=== PATIENT | male | born 1960 | race Caucasian/White ===

== ENCOUNTER 2017-11-02 03:00 | Inpatient (IN) ==
[2017-11-02] MEDS ORDERED: *HR* Dextrose 50 % in Water (Syg) 50 ML SYRINGE IVP PRN (03:40)
[2017-11-02] MEDS ORDERED: Dextrose Gel 15 GM/37.5 ML TUBE PO PRN ×2 (03:40)
[2017-11-02] MEDS ORDERED: D5% in Water 1,000 ML IVC PRN (03:40)
[2017-11-02] MEDS ORDERED: Acetaminophen 325 MG TABLET PO PRN (03:47)
[2017-11-02] MEDS ORDERED: Naloxone 0.4 MG/ML INJ IVP PRN (03:47)
[2017-11-02] MEDS ORDERED: Ondansetron ODT 4 MG TAB.RAPDIS SL PRN (03:47)
--- NOTE | 2017-11-02 03:47 | Internal Med History&Physical ---
<Charity Worthy - Last Filed: 11/02/17 04:06> Date of Encounter: 11/02/17 Time of Encounter: 04:06 Assessment and Plan (1) Small bowel obstruction, partial Current visit: Yes Status: Acute Patient is comfortable and in no acute distress. Patient is afebrile but is tachycardic at 120bpm. Documents from transferred hospital showed elevated WBC at 15.8. Lipase was unremarkable at 204. UA does not indicate any infection. CT of abdomen and pelvis with contrast reads low grade small bowel obstruction, consistent chronic pancreatitis, and hepatic stenosis per report. 1. Will make patient NPO now. 2. Will give IV fluids. 3. Pain control with dilaudid. 4. Will also order EKG to further evaluate his shortness of breath associated with the abdominal pain 5. Will hold Brilinta until the morning. (2) Diabetes Current visit: Yes Status: Acute Patient has DM Type 2 and is insulin dependent. Will hold diabetes home medications. Will have patient on insulin sliding scale. Continue to monitor the patient closely. Qualifiers: Qualified Code(s): E11.9 - Type 2 diabetes mellitus without complications (3) Hypertension Current visit: Yes Status: Acute Hypertension is stable and controlled. Will continue home medications. Continue to monitor the patient closely. Qualifiers: Qualified Code(s): I10 - Essential (primary) hypertension (4) Hyperlipidemia Current visit: Yes Status: Acute Will continue home medications. Qualifiers: Qualified Code(s): E78.5 - Hyperlipidemia, unspecified (5) Colon cancer Current visit: Yes Status: Acute Colon cancer s/p right hemicolectomy. Dr. Zayas is his oncologist. Per patient , he has another consultation appointment scheduled this coming Friday. Qualifiers: Qualified Code(s): C18.9 - Malignant neoplasm of colon, unspecified Internal Medicine - H&P: HPI Chief complaint: Abdominal pain Admitted From: Hospital to Hospital Transfer History of present illness: Mr. Jansen is a 57 year old male with a past medical history of small bowel obstruction, CHF, CAD s/p stent in 2016, Diabetes mellitus type 2 insulin dependent, hyperlipidemia, hypertension, and colon cancer s/p right hemicolectomy was transferred here for small bowel obstruction. The patient stated that he began having abdominal pain around noon on 11/01/16 while just walking. He describes the abdominal pain as an intermittent pain in his epigastrium that radiates down his surgical scar and to the bilateral lower quadrants. He states that the pain is stabbing and crampy and feels like his previous SBO. He admits that his last SBO was one month ago where he was hospitalized at [facility] for a few days but no surgical intervention was done. Prior to that, he believed he had an SBO in February where there was surgical intervention. The patient also admits nausea and vomiting and some shortness of breath when the abdominal pain comes on. The patient admits he had a bowel movement prior to being transferred to this hospital. He denies any headache, vision changes, chest pain, diarrhea, blood in his stool, dysuria, hematuria, numbness and tingling, and any weaknesses. Past Med Surg Social Fam HX - Past Medical History Medical history: coronary artery disease, diabetes, hyperlipidemia, hypertension Psychiatric history: anxiety, depression, panic disorder, PTSD, prior suicide attempt, schizophrenia - Past Surgical History Surgical History: angioplasty/stent - Social History Smoking Status: Former smoker Smokeless Tobacco Status: No Alcohol use: none Drug use: none - Family History Sister Living Status: Still Living Hx Family Cardiac Disorders: Yes Hx Family Respiratory Disorders: Yes Hx Family Cancer: No Hx Family GI Disorders: No Hx Family Endocrine Disorder: Yes Hx Family Neuromuscular Disorders: Yes Hx Family Neurologic Disorders: No Hx Family HEENT Disorders: No Hx Family Autoimmune Disorders: No Internal Medicine - H&P: Meds Aspirin Enteric Coated [Aspirin EC] 81 mg PO DAILY 05/29/16 [History] Ergocalciferol (VITAMIN D2) [Vitamin D2 (50,000 UNIT)] 50,000 unit PO SUWE 05/29 [History] Insulin Glargine,Hum.rec.anlog [Lantus Solostar] 80 unit SQ HS 05/29/16 [History ] Isosorbide MONOnitrate (24 HR) [Imdur] 60 mg PO DAILY 05/29/16 [History] Metformin HCl [Glucophage] 1,000 mg PO BID 05/29/16 [History] Metoprolol [Lopressor] 25 mg PO BID 05/29/16 [History] Nitroglycerin 0.4 mg SL Q5MIN PRN 05/29/16 [History] Rosuvastatin [Crestor] 40 mg PO DAILY 05/29/16 [History] Ticagrelor [Brilinta] 90 mg PO BID #60 tablet 05/30/16 [Rx] Capecitabine [Xeloda] 1,000 mg PO BID #56 tablet 10/24/17 [Rx] Diphenoxylate/Atropine [Lomotil 2.5 mg/0.025 mg] 1 each PO QID PRN #30 tablet [Rx] Loperamide [Imodium] 2 mg PO Q4HR PRN #30 capsule 10/24/17 [Rx] Ondansetron [Zofran] 8 mg PO Q8HR #90 tablet 10/24/17 [Rx] Prochlorperazine Maleate [Compazine] 10 mg PO Q8HR PRN #90 tablet 10/24/17 [Rx] 3 Allergy/AdvReac Type Severity Reaction Status Date / Time bee venom protein (honey bee) Allergy Difficulty Verified 10/24/17 15:04 Breathing Penicillins [PCN] AdvReac Hives Verified 10/24/17 15:03 All Systems PM: A 10-system review of systems was performed and is negative for pertinent findings except as documented above in the HPI. - Constitutional Vitals: Temp Pulse Resp BP Pulse Ox 97.7 F 133 16 134/90 94 11/02/17 02:22 11/02/17 02:22 11/02/17 02:22 11/02/17 02:22 11/02/17 02:22 General appearance: Present: cooperative, A&O X 3, pleasant, no acute distress Exam: Patient appears comfortable and in no acute distress. - Head Head exam: Present: atraumatic, normocephalic - Eye Eye exam: Present: PERRL, conjuntiva pink, sclera anicteric Pupils: Present: PERRL - Neck Neck exam general surgery: Present: supple, trachea midline. Absent: lymphadenopathy - Respiratory Respiratory exam: Present: CTAB. Absent: accessory muscle use, rales, rhonchi, wheezes - Cardiovascular Cardiovascular exam: Present: RRR, +S1, +S2, tachycardia. Absent: diastolic murmur, gallop, rubs, systolic murmur - GI/Abdominal GI/Abdominal exam: Present: normal bowel sounds, soft, tenderness (tenderness to palpation in the epigastrium and umbilicus region. ), no peritoneal signs. Absent: distended Additional comments: Well healed linear surgical incision in the middle of his abdomen. Abdomen is soft and nondistended. - Extremities Exam Extremities exam: Present: warm, radial pulses palpable and symmetrical. Absent : calf tenderness, cyanotic, pedal edema - Neurological Exam Neurological exam: Present: CN II-XII intact, oriented X3, no focal deficits. Absent: pronater drift, facial droop, speech deficit - Skin Skin exam: Present: dry, intact <Debra Sandoval - Last Filed: 11/02/17 06:09> Date of Encounter: 11/02/17 Internal Medicine - H&P: HPI History of present illness: Mr. Jansen is a 57 year old male All Systems PM: A 10-system review of systems was performed and is negative for pertinent findings except as documented above in the HPI. - Constitutional Vitals: Temp Pulse Resp BP Pulse Ox 97.9 F 123 16 140/59 95 11/02/17 04:34 11/02/17 04:34 11/02/17 04:34 11/02/17 04:34 11/02/17 04:34 Internal Med - H&P Results - Labs CBC & Chem 7: 11/02/17 05:20 Labs: BMP 11/02/17 05:20 Sodium 139 Potassium 4.6 Chloride 110 H Carbon Dioxide 16 L BUN 23 H Creatinine 0.77 Glucose 176 H Calcium 9.3 Liver Function 11/02/17 Range/Units 05:20 Total Bilirubin 0.6 (0.3-1.0) mg/dL AST 17 (13-39) Units/L ALT 16 (7-52) Units/L Alkaline Phosphatase 47 (34-104) Units/L Albumin 4.4 (3.5-5.7) g/dL - Attending Attestation I have seen and examined pt independently, I have discussed with Resident Physician Dr Worthy regarding the management plan. Agree with the documentation.
[2017-11-02] MEDS ORDERED: Nitroglycerin 0.4 MG TAB.SUBL SL PRN (03:59)
[2017-11-02] MEDS ORDERED: Diphenoxylate/Atropine 1 TAB TABLET PO PRN (03:59)
[2017-11-02] MEDS ORDERED: Ondansetron ODT 4 MG TAB.RAPDIS PO PRN (05:43)
[2017-11-02] MEDS: *HR* Heparin 5,000 UNIT/ML VIAL SQ SCH ×2 (05:49→18:43)
[2017-11-02] MEDS: 0.9 % Sodium Chloride 1,000 ML IVC SCH ×2 (05:49→14:55)
[2017-11-02] MEDS: *HR* HYDROmorphone (PF) 1 MG/ML SYRINGE IVP PRN (05:52)
[2017-11-02] MEDS: Insulin LISPRO 300 UNITS/3 ML VIAL SQ SCH ×3 (05:52→20:51)
[2017-11-02 05:59] LABS: Alanine Aminotransferase 16 Units/L (7-52); Albumin 4.4 g/dL (3.5-5.7); Albumin/Globulin Ratio 1.4 (1.1-2.2); Alkaline Phosphatase 47 Units/L (34-104); Aspartate Amino Transferase 17 Units/L (13-39); BUN/Creatinine Ratio 30 (6-26); Bilirubin,Total 0.6 mg/dL (0.3-1.0); Blood Urea Nitrogen 23 mg/dL (6-20); Calcium 9.3 mg/dL (8.6-10.3); Carbon Dioxide 16 mEq/L (23-29); Chloride 110 mEq/L (98-107); Chol/HDL Ratio 3.9 (0-4.9); Cholesterol 140 mg/dL (< 200); Globulin 3.1 g/dL (2.4-3.5); Glucose 176 mg/dL (70-105); HDL Cholesterol 36 mg/dL (40-59); LDL Cholesterol,Calculated 73 mg/dL (0-99); Magnesium 1.4 mg/dL (1.6-2.6); Osmolality,Calculated 296 (280-300); Potassium 4.6 mEq/L (3.5-5.1); Sodium 139 mEq/L (136-145); Total Protein 7.5 g/dL (6.4-8.9); Triglycerides 157 mg/dL (< 150); eGFR For African Americans > 60 (> 60); eGFR For Non-African Americans > 60 (> 60)
[2017-11-02 06:05] LABS: Basophils % 0.3 %; Hematocrit 48.1 % (37.5-50.1); Hemoglobin 14.7 g/dL (12.9-16.9); Immature Granulocytes % 0.5 % (0-4); Lymphocytes % 14.9 %; Mean Corpuscular HGB Conc 30.6 g/dL (31.6-35.5); Mean Corpuscular Hemoglobin 24.7 pg (28.0-33.3); Mean Platelet Volume 11.5 fL (9.4-12.4); Monocytes # 0.7 K/mcL (0.0-1.3); Monocytes % 11.2 %; Neutrophils # 4.9 K/mcL (1.6-8.9); Platelet Count 219 K/mcL (140-400); Red Blood Count 5.94 M/mcL (4.19-5.50); Red Cell Distribution Width 16.2 % (11.5-14.5); Segmented Neutrophils % 73.1 %
[2017-11-02] MEDS ORDERED: *HR* Metoprolol 5 MG/5 ML VIAL IVP PRN (06:35)
[2017-11-02] MEDS ORDERED: *HR* Metoprolol 5 MG/5 ML VIAL IVP SCH (06:45)
[2017-11-02] MEDS ORDERED: Metoprolol XL (24 HR) Succ 25 MG TAB.ER.24H PO ONE (08:32)
[2017-11-02] MEDS ORDERED: Isosorbide MONOnitrate (24 HR) 60 MG TAB.ER.24H PO SCH (09:00)
[2017-11-02] MEDS ORDERED: Aspirin Enteric Coated 81 MG Tablet PO SCH (09:00)
--- NOTE | 2017-11-02 14:45 | Event Note ---
Date of Encounter: 11/02/17 Time of Encounter: 14:44 Patient seen and examined this AM. 57 year old male with history of colon cancer s/p right hemicolectomy presented for abdominal pain. He was transferred here after CT showed low grade small bowel obstruction. Patient reports he had a SBO one month ago and hospitalized at [facility], without any surgical intervention. He states that 8 months ago he had a SBO and surgerical intervention was done, unsure exactly what was done. Patient states he has an Oncology appointment tomorrow at 8 am to evaluate if he is a good candidate for chemotherapy. Upon examining patient, he is in no acute distress, currently denies abdominal pain, n/v. Has good appetite, would like to eat. VS reviewed. Patient tachcardic in AM 120-130s bpm. Normotensive, afebrile Physical exam: Abdomen is soft, mild TTP in epigastric region, normoactive bowel sounds, no peritoneal signs. A/P: - Partial SBO: low grade, patient currently pain free, and only mild TTP with palpation on exam. Patient mentioned that he did just now have a bowel movement. No NG tube has been necessary. Since patient having 2 recurrances within a year, will consult surgery for any recommendations for patient. Will keep patient NPO and give IVF. - Tachycardia: on lopressor BID at home Will give him a one time dose of Toprol XL. Patient has no signs or symptoms of infection/sepsis - DVT prophylaxis: Heparin 5,000 units SQ BID.
[2017-11-02] MEDS ORDERED: Ondansetron 4 MG/2 ML VIAL IVP PRN (15:07)
[2017-11-02] MEDS: Insulin DETEMIR 100 UNIT/ML X5UNITS SQ SCH (20:54)
[2017-11-03] MEDS: Insulin LISPRO 300 UNITS/3 ML VIAL SQ SCH ×4 (01:15→17:32)
[2017-11-03] MEDS: 0.9 % Sodium Chloride 1,000 ML IVC SCH ×2 (02:50→14:05)
[2017-11-03 05:39] LABS: Basophils % 0.5 %; Eosinophils # 0.3 K/mcL (0.0-0.6); Eosinophils % 6.9 %; Hematocrit 37.8 % (37.5-50.1); Immature Granulocytes % 0.5 % (0-4); Lymphocytes # 1.8 K/mcL (0.6-4.6); Lymphocytes % 42.3 %; Mean Corpuscular HGB Conc 30.2 g/dL (31.6-35.5); Mean Corpuscular Hemoglobin 24.8 pg (28.0-33.3); Mean Corpuscular Volume 82.2 fL (83.0-100.0); Mean Platelet Volume 11.4 fL (9.4-12.4); Monocytes # 0.7 K/mcL (0.0-1.3); Monocytes % 15.4 %; Neutrophils # 1.5 K/mcL (1.6-8.9); Nucleated Red Blood Cells 0.7 /100 WBC (0); Platelet Count 165 K/mcL (140-400); Red Cell Distribution Width 15.9 % (11.5-14.5); Segmented Neutrophils % 34.4 %
[2017-11-03 05:42] LABS: Hemoglobin 11.4 g/dL (12.9-16.9)
[2017-11-03 05:47] LABS: BUN/Creatinine Ratio 34 (6-26); Blood Urea Nitrogen 23 mg/dL (6-20); Carbon Dioxide 24 mEq/L (23-29); Chloride 108 mEq/L (98-107); Glucose 90 mg/dL (70-105); Osmolality,Calculated 289 (280-300); Potassium 3.6 mEq/L (3.5-5.1); Sodium 138 mEq/L (136-145); eGFR For African Americans > 60 (> 60); eGFR For Non-African Americans > 60 (> 60)
[2017-11-03] MEDS: *HR* Heparin 5,000 UNIT/ML VIAL SQ SCH ×2 (06:17→17:27)
[2017-11-03] MEDS: *HR* HYDROmorphone (PF) 1 MG/ML SYRINGE IVP PRN ×2 (08:59→14:45)
--- NOTE | 2017-11-03 09:35 | General Surgery Consult Note ---
<Letha Antonio - Last Filed: 11/03/17 14:14> Date of Encounter: 11/03/17 Time of Encounter: 08:00 Assessment and Plan (1) Small bowel obstruction, partial Current Visit: Yes Status: Resolved Small bowel follow through series (11/03/16) shows contrast progressing from small bowel to colon and rectum. Patient has appetite and would like to eat and drink, no nausea/vomiting, had bowel movement this morning, passing flatus. Plan: No evidence for mechanical SBO, no recurrent SBO--no surgical intervention necessary at this time Clear liquid diet, advance diet as tolerated--further diet instructions per primary medicine team Will follow at a distance, please call with any questions or concerns--thank you for allowing us to participate in the care of this patient History of Present Illness Consult date: 11/03/17 Requesting physician: Juan Pablo Ward History of present illness: Mr. Jansen is a 57 year old male with h/o SBO and colon cancer s/p Rt hemicolectomy 2015 who was transferred here after CT showed low-grade SBO. Per patient most recent SBO was 1 month ago and he was hospitalized for several days at [facility] and no surgical intervention was required; prior to that, he had an SBO 8 months ago that required surgery, but wasn't sure what was done. Consulted by primary medicine team for recommendations. Seen and examined this morning, no complaints other than being hungry and wanting to eat. Denies nausea , vomiting, fever, chills. Admits to bowel movement today as well as passing flatus. States he has some mild tenderness of mid-epigastric area. Past Med Surg Social Fam HX - Past Medical History Medical history: coronary artery disease, diabetes, hyperlipidemia, hypertension Psychiatric history: anxiety, depression, panic disorder, PTSD, prior suicide attempt, schizophrenia - Past Surgical History Surgical History: angioplasty/stent - Social History Smoking Status: Former smoker Smokeless Tobacco Status: No Alcohol use: none Drug use: none - Family History Sister Living Status: Still Living Hx Family Cardiac Disorders: Yes Hx Family Respiratory Disorders: Yes Hx Family Cancer: No Hx Family GI Disorders: No Hx Family Endocrine Disorder: Yes Hx Family Neuromuscular Disorders: Yes Hx Family Neurologic Disorders: No Hx Family HEENT Disorders: No Hx Family Autoimmune Disorders: No Medications and Allergies Aspirin Enteric Coated [Aspirin EC] 81 mg PO DAILY 05/29/16 [History] Ergocalciferol (VITAMIN D2) [Vitamin D2 (50,000 UNIT)] 10,000 unit PO SUWE 05/29 [History] Metformin HCl [Glucophage] 1,000 mg PO BID 05/29/16 [History] Metoprolol [Lopressor] 50 mg PO BID 05/29/16 [History] Nitroglycerin 0.4 mg SL Q5MIN PRN 05/29/16 [History] Rosuvastatin [Crestor] 40 mg PO DAILY 05/29/16 [History] Ticagrelor [Brilinta] 90 mg PO BID #60 tablet 05/30/16 [Rx] Capecitabine [Xeloda] 1,000 mg PO BID #56 tablet 10/24/17 [Rx] Diphenoxylate/Atropine [Lomotil 2.5 mg/0.025 mg] 1 each PO QID PRN #30 tablet [Rx] Loperamide [Imodium] 2 mg PO Q4HR PRN #30 capsule 10/24/17 [Rx] Ondansetron [Zofran] 8 mg PO Q8HR #90 tablet 10/24/17 [Rx] Prochlorperazine Maleate [Compazine] 10 mg PO Q8HR PRN #90 tablet 10/24/17 [Rx] Empagliflozin/Linagliptin [Glyxambi 10 mg-5 mg Tablet] 1 tab PO DAILY 11/02/17 [ History] Glimepiride [Amaryl] 4 mg PO DAILY 11/02/17 [History] Insulin Degludec [Tresiba Flextouch U-100] 75 unit SQ DAILY 11/02/17 [History] Iron Polysaccharide Complex [Pro Fe] 180 mg PO DAILY 11/02/17 [History] Omeprazole [PriLOSEC] 40 mg PO DAILY 11/02/17 [History] amLODIPine [Norvasc] 10 mg PO DAILY 11/02/17 [History] metFORMIN [Glucophage] 500 mg PO 1200 11/02/17 [History] 3 Allergy/AdvReac Type Severity Reaction Status Date / Time bee venom protein (honey bee) Allergy Difficulty Verified 10/24/17 15:04 Breathing Penicillins [PCN] AdvReac Hives Verified 10/24/17 15:03 Review of Systems All systems PM: A 10-system review of systems was performed and is negative for pertinent findings except as documented above in the HPI. General Surgery Exam Initial Vital Signs Temp Pulse Resp BP Pulse Ox 97.7 F 133 16 134/90 94 11/02/17 02:22 11/02/17 02:22 11/02/17 02:22 11/02/17 02:22 11/02/17 02:22 - General physical appearance well developed, well nourished, no distress, no pain - Eyes normal ocular movement - Respiratory normal respiratory effort, clear to auscultation - Cardiovascular Cardiovascular exam: Present: RRR. Absent: murmurs - Abdomen Abdomen general surgery: Present: bowel sounds present, soft Abdominal Tenderness: Present: epigastic (minimally tender to palpation) - Neurologic Present: CN 2-12 grossly intact, normal coordination - Psychiatric Psychiatric general surgery: Present: A&Ox3, appropriate, oriented to person, oriented to place, oriented to time, speech is normal Exam Initial Vital Signs Temp Pulse Resp BP Pulse Ox 97.7 F 133 16 134/90 94 11/02/17 02:22 11/02/17 02:22 11/02/17 02:22 11/02/17 02:22 11/02/17 02:22 Results - Labs 11/03/17 04:59 11/03/17 04:59 Abnormal lab results Hgb 11.4 g/dL (12.9-16.9) L D 11/03/17 04:59 MCV 82.2 fL (83.0-100.0) L 11/03/17 04:59 MCH 24.8 pg (28.0-33.3) L 11/03/17 04:59 MCHC 30.2 g/dL (31.6-35.5) L 11/03/17 04:59 RDW 15.9 % (11.5-14.5) H 11/03/17 04:59 Neutrophils # 1.5 K/mcL (1.6-8.9) L 11/03/17 04:59 Nucleated RBCs/100 WBC 0.7 /100 WBC (0) H 11/03/17 04:59 Chloride 108 mEq/L (98-107) H 11/03/17 04:59 BUN 23 mg/dL (6-20) H 11/03/17 04:59 Creatinine 0.68 mg/dL (0.70-1.30) L 11/03/17 04:59 BUN/Creatinine Ratio 34 (6-26) H 11/03/17 04:59 POC Glucose 91 (58-89) H 11/03/17 05:37 Calcium 8.0 mg/dL (8.6-10.3) L 11/03/17 04:59 Magnesium 1.4 mg/dL (1.6-2.6) L 11/02/17 05:20 Triglycerides 157 mg/dL (< 150) H 11/02/17 05:20 VLDL Cholesterol, Calc 31 mg/dL (< 31) H 11/02/17 05:20 HDL Cholesterol 36 mg/dL (40-59) L 11/02/17 05:20 Diabetes panel 11/03/17 Range/Units 04:59 Sodium 138 (136-145) mEq/L Potassium 3.6 (3.5-5.1) mEq/L Chloride 108 H (98-107) mEq/L Carbon Dioxide 24 (23-29) mEq/L BUN 23 H (6-20) mg/dL Creatinine 0.68 L (0.70-1.30) mg/dL Glucose 90 (70-105) mg/dL Calcium 8.0 L (8.6-10.3) mg/dL Calcium panel 11/03/17 Range/Units 04:59 Calcium 8.0 L (8.6-10.3) mg/dL Pituitary panel 11/03/17 Range/Units 04:59 Sodium 138 (136-145) mEq/L Potassium 3.6 (3.5-5.1) mEq/L Chloride 108 H (98-107) mEq/L Carbon Dioxide 24 (23-29) mEq/L BUN 23 H (6-20) mg/dL Creatinine 0.68 L (0.70-1.30) mg/dL Glucose 90 (70-105) mg/dL Calcium 8.0 L (8.6-10.3) mg/dL Adrenal panel 11/03/17 Range/Units 04:59 Sodium 138 (136-145) mEq/L Potassium 3.6 (3.5-5.1) mEq/L Chloride 108 H (98-107) mEq/L Carbon Dioxide 24 (23-29) mEq/L BUN 23 H (6-20) mg/dL Creatinine 0.68 L (0.70-1.30) mg/dL Glucose 90 (70-105) mg/dL Calcium 8.0 L (8.6-10.3) mg/dL All other labs normal. Consult Discharge Plan - Plan Referrals: Lois Yun, [facility] CO[facility]INATOR [Primary Care Provider] - 11/07/17 1:00 pm <LubnaJaeelisha Gleason - Last Filed: 11/04/17 09:00> Date of Encounter: 11/04/17 Review of Systems All systems PM: A 10-system review of systems was performed and is negative for pertinent findings except as documented above in the HPI. General Surgery Exam Initial Vital Signs Temp Pulse Resp BP Pulse Ox 97.7 F 133 16 134/90 94 11/02/17 02:22 11/02/17 02:22 11/02/17 02:22 11/02/17 02:22 11/02/17 02:22 Exam Initial Vital Signs Temp Pulse Resp BP Pulse Ox 97.7 F 133 16 134/90 94 11/02/17 02:22 11/02/17 02:22 11/02/17 02:22 11/02/17 02:22 11/02/17 02:22 Results - Labs 11/04/17 04:17 11/04/17 04:17 Abnormal lab results Hgb 10.9 g/dL (12.9-16.9) L 11/04/17 04:17 Hct 35.2 % (37.5-50.1) L 11/04/17 04:17 MCV 82.1 fL (83.0-100.0) L 11/04/17 04:17 MCH 25.4 pg (28.0-33.3) L 11/04/17 04:17 MCHC 31.0 g/dL (31.6-35.5) L 11/04/17 04:17 RDW 15.4 % (11.5-14.5) H 11/04/17 04:17 Nucleated RBCs/100 WBC 0.7 /100 WBC (0) H 11/03/17 04:59 Potassium 3.3 mEq/L (3.5-5.1) L 11/04/17 04:17 Chloride 111 mEq/L (98-107) H 11/04/17 04:17 Carbon Dioxide 21 mEq/L (23-29) L 11/04/17 04:17 Creatinine 0.56 mg/dL (0.70-1.30) L 11/04/17 04:17 Calcium 7.9 mg/dL (8.6-10.3) L 11/04/17 04:17 Magnesium 1.4 mg/dL (1.6-2.6) L 11/02/17 05:20 Triglycerides 157 mg/dL (< 150) H 11/02/17 05:20 VLDL Cholesterol, Calc 31 mg/dL (< 31) H 11/02/17 05:20 HDL Cholesterol 36 mg/dL (40-59) L 11/02/17 05:20 Diabetes panel 11/04/17 Range/Units 04:17 Sodium 139 (136-145) mEq/L Potassium 3.3 L (3.5-5.1) mEq/L Chloride 111 H (98-107) mEq/L Carbon Dioxide 21 L (23-29) mEq/L BUN 10 (6-20) mg/dL Creatinine 0.56 L (0.70-1.30) mg/dL Glucose 85 (70-105) mg/dL Calcium 7.9 L (8.6-10.3) mg/dL Calcium panel 11/04/17 Range/Units 04:17 Calcium 7.9 L (8.6-10.3) mg/dL Pituitary panel 11/04/17 Range/Units 04:17 Sodium 139 (136-145) mEq/L Potassium 3.3 L (3.5-5.1) mEq/L Chloride 111 H (98-107) mEq/L Carbon Dioxide 21 L (23-29) mEq/L BUN 10 (6-20) mg/dL Creatinine 0.56 L (0.70-1.30) mg/dL Glucose 85 (70-105) mg/dL Calcium 7.9 L (8.6-10.3) mg/dL Adrenal panel 11/04/17 Range/Units 04:17 Sodium 139 (136-145) mEq/L Potassium 3.3 L (3.5-5.1) mEq/L Chloride 111 H (98-107) mEq/L Carbon Dioxide 21 L (23-29) mEq/L BUN 10 (6-20) mg/dL Creatinine 0.56 L (0.70-1.30) mg/dL Glucose 85 (70-105) mg/dL Calcium 7.9 L (8.6-10.3) mg/dL All other labs normal. - Attending Attestation I examined this patient and my medical decision-making was reviewed with the Resident Physician. I agree with the documented findings, disposition and treatment plan as described except to the extent set forth below. The patient is seen and evaluated with resident. He has had partial abdominal colectomy followed by reexploration for bowel obstruction. He presents with recurrent abdominal discomfort. CAT scan was suggestive of partial bowel obstruction. Small bowel follow-through failed to demonstrate any evidence of bowel obstruction. The patient does not appear to have acute mechanical bowel obstruction. If he has further problems he should follow up with his primary surgical team. Surgery will sign off Erich Calvo MD fACS
[2017-11-03] MEDS ORDERED: Metoprolol XL (24 HR) Succ 50 MG TAB.ER.24H PO ONE (10:00)
--- NOTE | 2017-11-03 10:28 | Electrocardiograph Report ---
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
--- NOTE | 2017-11-03 14:21 | Discharge Summary ---
Date of Encounter: 11/03/17 Time of Encounter: 14:18 - Discharge Diagnosis (1) Small bowel obstruction, partial Priority: Primary Status: Resolved (2) CAD (coronary artery disease) Priority: Secondary Status: Acute Qualifiers: Coronary Disease-Associated Artery/Lesion type: [place] artery [place] vs. transplanted heart: [place] heart Associated angina: without angina Qualified Code(s): I25.10 - Atherosclerotic heart disease of [place] coronary artery without angina pectoris (3) Diabetes Priority: Secondary Status: Acute Qualifiers: Qualified Code(s): E11.9 - Type 2 diabetes mellitus without complications (4) Hypertension Priority: Secondary Status: Acute Qualifiers: Qualified Code(s): I10 - Essential (primary) hypertension (5) Hyperlipidemia Priority: Secondary Status: Acute Qualifiers: Qualified Code(s): E78.5 - Hyperlipidemia, unspecified (6) Colon cancer Priority: Secondary Status: Acute Qualifiers: Qualified Code(s): C18.9 - Malignant neoplasm of colon, unspecified - Discharge Medications Home Medications: Aspirin Enteric Coated [Aspirin EC] 81 mg PO DAILY 05/29/16 [History] Ergocalciferol (VITAMIN D2) [Vitamin D2 (50,000 UNIT)] 10,000 unit PO SUWE 05/29 [History] Metformin HCl [Glucophage] 1,000 mg PO BID 05/29/16 [History] Metoprolol [Lopressor] 50 mg PO BID 05/29/16 [History] Nitroglycerin 0.4 mg SL Q5MIN PRN 05/29/16 [History] Rosuvastatin [Crestor] 40 mg PO DAILY 05/29/16 [History] Ticagrelor [Brilinta] 90 mg PO BID #60 tablet 05/30/16 [Rx] Capecitabine [Xeloda] 1,000 mg PO BID #56 tablet 10/24/17 [Rx] Diphenoxylate/Atropine [Lomotil 2.5 mg/0.025 mg] 1 each PO QID PRN #30 tablet [Rx] Loperamide [Imodium] 2 mg PO Q4HR PRN #30 capsule 10/24/17 [Rx] Ondansetron [Zofran] 8 mg PO Q8HR #90 tablet 10/24/17 [Rx] Prochlorperazine Maleate [Compazine] 10 mg PO Q8HR PRN #90 tablet 10/24/17 [Rx] Empagliflozin/Linagliptin [Glyxambi 10 mg-5 mg Tablet] 1 tab PO DAILY 11/02/17 [ History] Glimepiride [Amaryl] 4 mg PO DAILY 11/02/17 [History] Insulin Degludec [Tresiba Flextouch U-100] 75 unit SQ DAILY 11/02/17 [History] Iron Polysaccharide Complex [Pro Fe] 180 mg PO DAILY 11/02/17 [History] Omeprazole [PriLOSEC] 40 mg PO DAILY 11/02/17 [History] amLODIPine [Norvasc] 10 mg PO DAILY 11/02/17 [History] metFORMIN [Glucophage] 500 mg PO 1200 11/02/17 [History] Allergies/Adverse Reactions: 3 Allergy/AdvReac Type Severity Reaction Status Date / Time bee venom protein (honey bee) Allergy Difficulty Verified 10/24/17 15:04 Breathing Penicillins [PCN] AdvReac Hives Verified 10/24/17 15:03 Procedures/tests Complete & Pending: Procedures Performed prior 72 hours Category Date Time Status ECG 12 lead ECG [ECG] Stat Y 11/02/17 03:47 Completed Date of admission: 11/02/17 16:41 Primary care physician: Lois Yun, Consults: 11/02/17 14:33 Consult to Surgery [CONS] Routine Consulting Provider: Erich Calvo Reason for Consult: Partial SBO, recurrance Call Completed: Yes Discharging clinician: Juan Pablo Ward - Patient Status Disposition: Home, Self-Care Condition: Fair Functional capacity at discharge: independent ambulation Overall status at discharge: patient is back to baseline - Discharge Instructions Follow Up With: Lois Yun CNP [Primary Care Provider] - - Diet and Activity Activity: increase activity as tolerated Diet: advance to your usual diet Hospital course: Mr. Jansen is a 57 year old male with a past medical history of small bowel obstruction, CHF, CAD s/p stent in 2016, Diabetes mellitus type 2 insulin dependent, hyperlipidemia, hypertension, and colon cancer s/p right hemicolectomy was transferred here for small bowel obstruction. The patient stated that he began having abdominal pain around noon on 11/01/16 while just walking. He describes the abdominal pain as an intermittent pain in his epigastrium that radiates down his surgical scar and to the bilateral lower quadrants. He states that the pain is stabbing and crampy and feels like his previous SBO. He admits that his last SBO was one month ago where he was hospitalized at [place] for a few days but no surgical intervention was done. Prior to that, he believed he had an SBO in February where there was surgical intervention. The patient also admits nausea and vomiting and some shortness of breath when the abdominal pain comes on. The patient admits he had a bowel movement prior to being transferred to this hospital. He denies any headache, vision changes, chest pain, diarrhea, blood in his stool, dysuria, hematuria, numbness and tingling, and any weaknesses. He was admitted for further monitoring. After arrival to floor his pain did improve outside of mild tenderness to palpation. He did have a bowel movement. He was placed NPO, surgery was consulted. Small bowel follow through showed no evidence of high grade obstruction. No surgical intervention was necessary. He was placed on a clear liquid diet. Advanced as tolerated. He was discharged in stable condition. - Time Spent with Patient Total time spent providing and/or coordinating discharge services: - Constitutional Vitals: Temp Pulse Resp BP Pulse Ox 98.0 F 91 16 121/68 95 11/03/17 04:18 11/03/17 04:18 11/03/17 04:18 11/03/17 04:18 11/03/17 04:18 General appearance: Present: cooperative, A&O X 3, pleasant, no acute distress - Head Head exam: Present: atraumatic, normocephalic - Eye Eye exam: Present: PERRL, conjuntiva pink, sclera anicteric Pupils: Present: PERRL - Neck Neck exam general surgery: Present: supple, trachea midline. Absent: lymphadenopathy - Respiratory Respiratory exam: Present: CTAB. Absent: accessory muscle use, rales, rhonchi, wheezes - Cardiovascular Cardiovascular exam: Present: RRR, +S1, +S2. Absent: diastolic murmur, gallop, rubs, systolic murmur - GI/Abdominal GI/Abdominal exam: Present: normal bowel sounds, soft, no peritoneal signs. Absent: distended, tenderness - Extremities Exam Extremities exam: Present: warm, radial pulses palpable and symmetrical. Absent : calf tenderness, cyanotic, pedal edema - Neurological Exam Neurological exam: Present: CN II-XII intact, oriented X3, no focal deficits. Absent: pronater drift, facial droop, speech deficit - Skin Skin exam: Present: dry, intact
--- NOTE | 2017-11-03 16:39 | Oncology Inp Consult Note ---
Date of Encounter: 11/03/17 Time of Encounter: 17:00 Assessment and Plan (1) Colon cancer Status: Acute Assessment and plan: Recurrent, metastatic peritoneal nodules-- peritoneal implant biopsied at [facility] final pathology is showing adenocarcinoma which is CK 20 positive CK 7 positive and CD X2 positive, prior hx T3N0 colon cancer s/p hemicolectomy not received adjuvant therapy then He has not started oral capecutabine with oxaliplatin. Appt to be rescheduled later this wk/next wk. Bowel symptoms are improving and tolerated diet. Plan d/c after observation if he continues to do well. He does not want infusional 5FU via port. Will readdress if he cannot tolerate oral capecitabine (xeloda) with IV Rx. He is willing to try Iv 5FU without infusional 5FU, if he cannot take capecitabine. Will f/u on xenia mutation studies from samples from [facility]. Plan reviewed with patient bedside in detail Qualifiers: Qualified Code(s): C18.9 - Malignant neoplasm of colon, unspecified - Data of Consult Requesting Physician: Juan Pablo Ward MD Primary Care Provider: Lois Yun, - Consult Narrative Reason for consult: recurrent colon cancer, bowel obstruction History of present illness: Mr. Jansen is a 57 yo male with a medical history significant for congestive heart failure, coronary artery disease, status post stent placement June 2016, history of diabetes mellitus, hyperlipidemia, hypertension, with stage II A, T3 N0 adenocarcinoma status post a right hemicolectomy--moderately differentiated adenocarcinoma by pathology margins were negative for tumor, tumor invading muscularis propria extending into pericolonic tissue 16 lymph nodes negative for tumor CT chest was negative for malignancy at that time, status post hernia repair February 2017 was hospitalized at [facility] with findings suggestive of small bowel obstruction. CT scan showed dilated loops of small bowel with transition point possible mass causing obstruction and possible peritoneal implants raising suspicion for metastatic disease. A CT scan of the chest from 10/07/2017 showed no evidence of pulmonary malignancy or metastatic disease within the chest. Hepatic steatosis. He underwent needle biopsy of the metastatic disease, peritoneal implant final pathology is showing adenocarcinoma which is CK 20 positive CK 7 positive and CD X2 positive. Patient was seen in clinic in and was scheduled to begin chemotherapy with capecitabine/oxaliplatin. HE is rehospitalized with abd pain, X ray suggestive of dilated small bowels Surg eval suggested conservative management He has not strated xeloda yet He has had PO liquids this Am is has tolertaed some soft? diet on his own as well PAin is improved, no nausea. He missed his f/u appt in clinic due to hospital stay Past Med Surg Social Fam HX - Past Medical History Medical history: coronary artery disease, diabetes, hyperlipidemia, hypertension Psychiatric history: anxiety, depression, panic disorder, PTSD, prior suicide attempt, schizophrenia - Past Surgical History Surgical History: angioplasty/stent - Social History Smoking Status: Former smoker Smokeless Tobacco Status: No Alcohol use: none Drug use: none - Family History Sister Living Status: Still Living Hx Family Cardiac Disorders: Yes Hx Family Respiratory Disorders: Yes Hx Family Cancer: No Hx Family GI Disorders: No Hx Family Endocrine Disorder: Yes Hx Family Neuromuscular Disorders: Yes Hx Family Neurologic Disorders: No Hx Family HEENT Disorders: No Hx Family Autoimmune Disorders: No Medications and Allergies Aspirin Enteric Coated [Aspirin EC] 81 mg PO DAILY 05/29/16 [History] Ergocalciferol (VITAMIN D2) [Vitamin D2 (50,000 UNIT)] 10,000 unit PO SUWE 05/29 [History] Metformin HCl [Glucophage] 1,000 mg PO BID 05/29/16 [History] Metoprolol [Lopressor] 50 mg PO BID 05/29/16 [History] Nitroglycerin 0.4 mg SL Q5MIN PRN 05/29/16 [History] Rosuvastatin [Crestor] 40 mg PO DAILY 05/29/16 [History] Ticagrelor [Brilinta] 90 mg PO BID #60 tablet 05/30/16 [Rx] Capecitabine [Xeloda] 1,000 mg PO BID #56 tablet 10/24/17 [Rx] Diphenoxylate/Atropine [Lomotil 2.5 mg/0.025 mg] 1 each PO QID PRN #30 tablet [Rx] Loperamide [Imodium] 2 mg PO Q4HR PRN #30 capsule 10/24/17 [Rx] Ondansetron [Zofran] 8 mg PO Q8HR #90 tablet 10/24/17 [Rx] Prochlorperazine Maleate [Compazine] 10 mg PO Q8HR PRN #90 tablet 10/24/17 [Rx] Empagliflozin/Linagliptin [Glyxambi 10 mg-5 mg Tablet] 1 tab PO DAILY 11/02/17 [ History] Glimepiride [Amaryl] 4 mg PO DAILY 11/02/17 [History] Insulin Degludec [Tresiba Flextouch U-100] 75 unit SQ DAILY 11/02/17 [History] Iron Polysaccharide Complex [Pro Fe] 180 mg PO DAILY 11/02/17 [History] Omeprazole [PriLOSEC] 40 mg PO DAILY 11/02/17 [History] amLODIPine [Norvasc] 10 mg PO DAILY 11/02/17 [History] metFORMIN [Glucophage] 500 mg PO 1200 11/02/17 [History] 3 Allergy/AdvReac Type Severity Reaction Status Date / Time bee venom protein (honey bee) Allergy Difficulty Verified 10/24/17 15:04 Breathing Penicillins [PCN] AdvReac Hives Verified 10/24/17 15:03 Review of systems: as in HPI otherwise neg Oncology - Exam - Constitutional Vitals: Temp Pulse Resp BP Pulse Ox 98.5 F 91 16 125/81 96 11/03/17 14:15 11/03/17 14:15 11/03/17 14:15 11/03/17 14:15 11/03/17 14:15 General appearance: no acute distress - Head Head exam: Present: atraumatic, normal inspection - Eye Eye exam: Present: sclera anicteric - ENT ENT exam: Present: mucous membranes moist - Respiratory Respiratory exam: Present: CTAB - Cardiovascular Cardiovascular exam: Present: +S1, +S2 - GI/Abdominal GI/Abdominal exam: Present: distended, normal bowel sounds, soft - Extremities Exam Extremities exam: Present: normal inspection - Neurological Exam Neurological exam: Present: alert, CN II-XII intact, oriented X3, no focal deficits - Psychiatric Psychiatric exam: Present: normal mood - Skin Skin exam: Present: normal color Oncology - Results Labs: Short CBC 11/03/17 Range/Units 04:59 WBC 4.4 (4.3-11.1) K/mcL Hgb 11.4 L D (12.9-16.9) g/dL Hct 37.8 (37.5-50.1) % Plt Count 165 (140-400) K/mcL Neutrophils # 1.5 L (1.6-8.9) K/mcL BMP 11/03/17 04:59 Sodium 138 Potassium 3.6 Chloride 108 H Carbon Dioxide 24 BUN 23 H Creatinine 0.68 L Glucose 90 Calcium 8.0 L X ray findings reviewed Consult Discharge Plan - Plan Referrals: Lois Yun CNP [Primary Care Provider] - 11/07/17 1:00 pm
[2017-11-03] MEDS: Insulin DETEMIR 100 UNIT/ML X5UNITS SQ SCH (22:17)
[2017-11-03] MEDS ORDERED: Insulin LISPRO 300 UNITS/3 ML VIAL SQ SCH (23:45)
[2017-11-04] MEDS ORDERED: *HR* Dextrose 50 % in Water (Syg) 50 ML SYRINGE IVP PRN (00:47)
[2017-11-04] MEDS ORDERED: D5% in Water 1,000 ML IVC PRN (00:47)
[2017-11-04] MEDS ORDERED: Dextrose Gel 15 GM/37.5 ML TUBE PO PRN ×2 (00:47)
[2017-11-04] MEDS: 0.9 % Sodium Chloride 1,000 ML IVC SCH (03:58)
[2017-11-04 04:55] LABS: Basophils % 0.4 %; Eosinophils # 0.3 K/mcL (0.0-0.6); Eosinophils % 5.9 %; Hematocrit 35.2 % (37.5-50.1); Hemoglobin 10.9 g/dL (12.9-16.9); Immature Granulocytes % 0.4 % (0-4); Lymphocytes # 1.6 K/mcL (0.6-4.6); Lymphocytes % 33.6 %; Mean Corpuscular Hemoglobin 25.4 pg (28.0-33.3); Mean Corpuscular Volume 82.1 fL (83.0-100.0); Mean Platelet Volume 11.3 fL (9.4-12.4); Monocytes # 0.6 K/mcL (0.0-1.3); Monocytes % 12.7 %; Neutrophils # 2.3 K/mcL (1.6-8.9); Platelet Count 151 K/mcL (140-400); Red Blood Count 4.29 M/mcL (4.19-5.50); Red Cell Distribution Width 15.4 % (11.5-14.5)
[2017-11-04 05:21] LABS: BUN/Creatinine Ratio 18 (6-26); Blood Urea Nitrogen 10 mg/dL (6-20); Calcium 7.9 mg/dL (8.6-10.3); Carbon Dioxide 21 mEq/L (23-29); Chloride 111 mEq/L (98-107); Glucose 85 mg/dL (70-105); Osmolality,Calculated 286 (280-300); Potassium 3.3 mEq/L (3.5-5.1); Sodium 139 mEq/L (136-145); eGFR For African Americans > 60 (> 60); eGFR For Non-African Americans > 60 (> 60)
[2017-11-04] MEDS: *HR* Heparin 5,000 UNIT/ML VIAL SQ SCH (07:01)
[2017-11-04] MEDS: Insulin LISPRO 300 UNITS/3 ML VIAL SQ SCH ×2 (08:01→11:45)
[2017-11-04 14:45] VITALS: BP 157/95
[2017-11-04] MEDS ORDERED: Insulin LISPRO 300 UNITS/3 ML VIAL SQ SCH ×2 (16:30→21:00)
--- NOTE | 2017-11-04 18:39 | Internal Med Progress Note ---
Date of Encounter: 11/04/17 Time of Encounter: 18:37 (Seen earlier today) - Assessment and plan (1) Small bowel obstruction, partial Status: Resolved Assessment and plan: No chest pain. Continue home medications (2) CAD (coronary artery disease) Status: Acute Qualifiers: Coronary Disease-Associated Artery/Lesion type: [place] artery [place] vs. transplanted heart: [place] heart Associated angina: without angina Qualified Code(s): I25.10 - Atherosclerotic heart disease of [place] coronary artery without angina pectoris (3) Hypertension Status: Acute Assessment and plan: Restart home medications. Pain driving increased HTN Qualifiers: Hypertension type: essential hypertension Qualified Code(s): I10 - Essential (primary) hypertension - Time Spent With Patient Continue to advance diet as tolerated. F/u with PCP and Oncology as OP. 25 - 35 minutes (30 mins) - Subjective Interval history: No interval changes over night. Feels good and wants to go home. Hemodynamically stable - Constitutional Vitals: Temp Pulse Resp BP Pulse Ox 98.1 F 88 14 157/95 98 11/04/17 14:42 11/04/17 14:42 11/04/17 14:42 11/04/17 14:42 11/04/17 14:42 General appearance: Present: cooperative, A&O X 3, pleasant, no acute distress - Head Head exam: Present: atraumatic, normocephalic - Eye Eye exam: Present: EOMI, PERRL - ENT ENT exam: Present: mucous membranes moist - Neck Neck exam general surgery: Present: supple - Respiratory Respiratory exam: Present: CTAB - Cardiovascular Cardiovascular exam: Present: RRR - GI/Abdominal Additional comments: Soft, nondistended, BS present, no gaurding or rbt - Neurological Exam Additional comments: No focal neuro deficits Internal Medicine: Result - Labs CBC & Chem 7: 11/04/17 04:17 11/04/17 04:17 Labs: Short CBC 11/04/17 Range/Units 04:17 WBC 4.9 (4.3-11.1) K/mcL Hgb 10.9 L (12.9-16.9) g/dL Hct 35.2 L (37.5-50.1) % Plt Count 151 (140-400) K/mcL Neutrophils # 2.3 (1.6-8.9) K/mcL BMP 11/04/17 04:17 Sodium 139 Potassium 3.3 L Chloride 111 H Carbon Dioxide 21 L BUN 10 Creatinine 0.56 L Glucose 85 Calcium 7.9 L Consult Discharge Plan - Plan Referrals: Lois Yun CNP [Primary Care Provider] - 11/07/17 1:00 pm
== END 2017-11-04 16:09 | disposition home or self-care (01) | DRG 247 ==
LOC: 3ANU
PROVIDERS: ADMIT Internal Medicine; ATTEND Student in an Organized Health Care Education/Training Program

== ENCOUNTER 2018-06-03 19:55 | Inpatient (IN) ==
[2018-06-04] MEDS ORDERED: OXYCODONE Oral CONC 10 MG/0.5 ML ORAL.SYG SL PRN (00:09)
[2018-06-04] MEDS: Nicotine 21 MG PATCH.TD24 TD SCH ×2 (00:28→21:41)
[2018-06-04] MEDS ORDERED: Ondansetron 4 MG/2 ML VIAL IVP PRN (01:59)
[2018-06-04] MEDS ORDERED: Naloxone 0.4 MG/ML INJ IVP PRN (01:59)
[2018-06-04] MEDS ORDERED: 0.9 % Sodium Chloride 1,000 ML IVC SCH (02:00)
--- NOTE | 2018-06-04 02:06 | Internal Med History&Physical ---
<Gordy Walls - Last Filed: 06/04/18 02:32> Date of Encounter: 06/04/18 Time of Encounter: 02:04 Internal Medicine - H&P: HPI Chief complaint: abdominal pain, n/v Admitted From: Hospital to Hospital Transfer Plans for Post Hospital Care: Home History of present illness: Mr. Jansen is a 58 year old male with a PMHx of stage II colon cancer s/p right hemicolectomy and receiving palliative chemotherapy presents to [facility] with a complaint of nausea, vomiting, abdominal pain x 2 day. He states it was gradual onset with progressive worsening. Describes the pain as sharp and located in the lower abdomen without radiation. Constant but does wax and wane. No exacerbating or relieving symptoms. He does have a history of SBO which did not require surgical intervention. Describes chest pain when he vomits, clear vomit. States normally has a BM 4-5 times per day after colon resection but has not had one today. Denies evidence of blood in stool or vomit. Denies fevers, chills, numbness, tingling, SOB. He does follow with [facility] for his chemotherapy most recently early April. At [facility] emergency department, vital signs are significant for mild tachycardia at 100. Otherwise unremarkable. Lab results as follows: CBC: WBC 10.4, H/H 16.8/46.7, platelets 291 CMP sodium 137, potassium 3.3, chloride 99, bicarbonate 21, BUN/creatinine/ creatinine/0.72, glucose 82. Tbili 0.5, ALbumin 4.0, AST 20, ALT 15, Alk phos 63 PT 11.7, INR 1.2 EKG shows sinus tachycardia CXR wnl CT abdomen: High-grade small bowel obstruction secondary to known colonic mass. Chronic pancreatitis. Peritoneal carcinomatosis He was given aspirin, 1 L of normal saline, Zofran, clonidine, morphine. NG tube inserted. General surgery at [facility] was reportedly called that time and he was transferred Past medical history includes colon cancer as above, CHF, CAD, diabetes, hyperlipidemia, hypertension Past surgical history includes right hemicolectomy Past social history current smoker reportedly one pack per day, rare alcohol use , denies drug use We did discuss CODE STATUS he would not like to remain full code at this time as long as there is some benefit to his palliative chemotherapy.. Past Med Surg Social Fam HX - Past Medical History Medical history: coronary artery disease, diabetes, hyperlipidemia, hypertension Psychiatric history: anxiety, depression, panic disorder, PTSD, prior suicide attempt, schizophrenia - Past Surgical History Surgical History: angioplasty/stent - Social History Smoking Status: Former smoker Smokeless Tobacco Status: No Alcohol use: none Drug use: none - Family History Sister Living Status: Still Living Hx Family Cardiac Disorders: Yes Hx Family Respiratory Disorders: Yes Hx Family Cancer: No Hx Family GI Disorders: No Hx Family Endocrine Disorder: Yes Hx Family Neuromuscular Disorders: Yes Hx Family Neurologic Disorders: No Hx Family HEENT Disorders: No Hx Family Autoimmune Disorders: No Internal Medicine - H&P: Meds Aspirin Enteric Coated [Aspirin EC] 81 mg PO DAILY 05/29/16 [History] Ergocalciferol (VITAMIN D2) [Vitamin D2 (50,000 UNIT)] 10,000 unit PO SUWE 05/29 [History] Metformin HCl [Glucophage] 1,000 mg PO BID 05/29/16 [History] Metoprolol [Lopressor] 50 mg PO BID 05/29/16 [History] Nitroglycerin 0.4 mg SL Q5MIN PRN 05/29/16 [History] Rosuvastatin [Crestor] 40 mg PO DAILY 05/29/16 [History] Ticagrelor [Brilinta] 90 mg PO BID #60 tablet 05/30/16 [Rx] Diphenoxylate/Atropine [Lomotil 2.5 mg/0.025 mg] 1 each PO QID PRN #30 tablet [Rx] Loperamide [Imodium] 2 mg PO Q4HR PRN #30 capsule 10/24/17 [Rx] Ondansetron [Zofran] 8 mg PO Q8HR #90 tablet 10/24/17 [Rx] Prochlorperazine Maleate [Compazine] 10 mg PO Q8HR PRN #90 tablet 10/24/17 [Rx] Empagliflozin/Linagliptin [Glyxambi 10 mg-5 mg Tablet] 1 tab PO DAILY 11/02/17 [ History] Glimepiride [Amaryl] 4 mg PO DAILY 11/02/17 [History] Iron Polysaccharide Complex [Pro Fe] 180 mg PO DAILY 11/02/17 [History] Omeprazole [PriLOSEC] 40 mg PO DAILY 11/02/17 [History] amLODIPine [Norvasc] 10 mg PO DAILY 11/02/17 [History] metFORMIN [Glucophage] 500 mg PO 1200 11/02/17 [History] Promethazine [Phenergan] 25 mg PO Q6HR #90 tablet 11/20/17 [Rx] Clindamycin Phosphate [Cleocin T] 30 gm TP DAILY #1 gel..gram. 12/11/17 [Rx] Docusate [Colace] 100 mg PO HS PRN #30 capsule 12/11/17 [Rx] Hydrocortisone 1% CREAM [Cortaid] 14 gm TP DAILY #1 bottle 12/11/17 [Rx] Magnesium Oxide [Magnesium] 400 mg PO BID #60 tablet 12/11/17 [Rx] Capecitabine [Xeloda] 1,000 mg PO BID #56 tablet 12/26/17 [Rx] Clindamycin Phosphate [Clindagel] 75 ml TP DAILY #30 gel..ml. 01/01/18 [Rx] Doxycycline 100 mg PO BID #60 capsule 01/01/18 [Rx] Hydrocortisone 1% OINT [Cortaid] 1 appl TP BID #1 tube 01/01/18 [Rx] Zolpidem [Ambien] 5 mg PO HS 30 Days #30 tablet 04/16/18 [Rx] Pantoprazole Sodium [Protonix] 40 mg PO DAILY #30 tablet.dr 05/08/18 [Rx] OxyCODONE Immed Rel [Roxicodone 5 MG] 10 mg PO BID PRN 30 Days #120 tablet 06/01 [Rx] 3 Allergy/AdvReac Type Severity Reaction Status Date / Time bee venom protein (honey bee) Allergy Difficulty Verified 05/08/18 07:58 Breathing Penicillins [PCN] AdvReac Hives Verified 05/08/18 07:58 All Systems PM: A 10-system review of systems was performed and is negative for pertinent findings except as documented above in the HPI. - Constitutional Constitutional: no chills, no fever(s), no lethargy, no weakness - Cardiovascular Cardiovascular ROS IM: chest pain, no dyspnea, no dyspnea on exertion, no edema , no lightheadedness, no palpitations, no syncope - Respiratory Respiratory: no cough, no dyspnea, no dyspnea on exertion, no wheezing - Gastrointestinal Gastrointestinal: abdominal pain, change in bowel habits, constipation, nausea, vomiting, no coffee ground emesis, no diarrhea, no dyspepsia, no dysphagia, no loose stools, no melena - Neurological Neurological ROS: no numbness, no tingling - Constitutional Vitals: Temp Pulse Resp BP Pulse Ox 98.4 F 100 15 102/72 96 06/03/18 22:33 06/03/18 22:33 06/03/18 22:33 06/03/18 22:33 06/03/18 22:33 Exam: Gen.: Vitals noted. No acute distress. AAOx3 HEENT: PERRL/EOMI, oropharynx clear, Normocephalic, atraumatic, mildly jaundiced. NG tube in place and hooked up to INTERMITTENT suction. No output. Cardiac: RRR, no murmur, +S1/S2 Pulmonary: CTA bilaterally, no wheezes, rales or rhonchi, equal chest expansion Abdomen: soft, tender to palpation in lower abdomen, BS normal, no guarding, patient reports rebound tenderness, mildly distended MSK: ROM intact, no joint swelling noted Extremities: no BLE edema, nontender calf, no cyanosis or clubbing Neuro: A&Ox3, moves all extremities, no focal deficits Psych: Appropriate mood and behavior - Assessment and plan (1) Small bowel obstruction Current Visit: Yes Status: Acute Assessment and plan: - As demonstrated on CT scan in [facility]: High-grade small bowel shock should secondary to colonic mass with peritoneal carcinomatosis and chronic pancreatitis. - Gen. surgery has been consulted - NG tube in place to intermittent suction - Pain control - We will give IV fluids at 100 per hour with 40 mEq of potassium due to hypokalemia on presentation - Continue supportive care and await surgery recommendations (2) CAD (coronary artery disease) Current Visit: No Status: Chronic Assessment and plan: Stable, patient's chest pain is more likely related to esophagitis secondary to vomiting Troponin at [facility] was negative, EKG unremarkable Continue home meds when able to take by mouth medication Qualifiers: Coronary Disease-Associated Artery/Lesion type: [place] artery [place] vs. transplanted heart: [place] heart Associated angina: without angina Qualified Code(s): I25.10 - Atherosclerotic heart disease of [place] coronary artery without angina pectoris (3) Diabetes Current Visit: Yes Status: Acute Assessment and plan: type 2 diabetes on metformin, blood sugars have been well controlled with most recent blood sugar of 82 Sliding scale insulin, will get A1c in the morning Qualifiers: Diabetes mellitus type: type 2 Diabetes mellitus group home insulin use: without group home use Diabetes mellitus complication status: without complication Qualified Code(s): E11.9 - Type 2 diabetes mellitus without complications (4) Hypertension Current Visit: Yes Status: Chronic Assessment and plan: Well-controlled this time at 102/72 Continue monitor and start IV medications as needed as patient is nothing by mouth Qualifiers: Hypertension type: essential hypertension Qualified Code(s): I10 - Essential (primary) hypertension (5) Hyperlipidemia Current Visit: No Status: Chronic Assessment and plan: Continue home statin unable to take by mouth medications Qualifiers: Hyperlipidemia type: unspecified Qualified Code(s): E78.5 - Hyperlipidemia , unspecified (6) Colon cancer Current Visit: Yes Status: Acute Assessment and plan: - Reported history of stage II colon cancer status post right hemicolectomy but unfortunately does have peritoneal carcinomatosis and reportedly local metastasis. - He is receiving palliative chemotherapy if [facility] - Patient is aware of prognosis - Likely relating to small bowel obstruction as above - Continue management as outpatient -Consider palliative care consult if no surgical management is to be done Qualifiers: Colon location: overlapping sites Qualified Code(s): C18.8 - Malignant neoplasm of overlapping sites of colon (7) DVT prophylaxis Current Visit: Yes Status: Acute Assessment and plan: Heparin 5000 units - Time Spent With Patient Total time spent is greater than 50% in coordination of care (as documented) at patient's floor/unit and/or counseling patient: <Osito Frank - Last Filed: 06/04/18 03:27> Date of Encounter: 06/04/18 Internal Medicine - H&P: HPI History of present illness: Mr. Jansen is a 58 year old male All Systems PM: A 10-system review of systems was performed and is negative for pertinent findings except as documented above in the HPI. - Constitutional Vitals: Temp Pulse Resp BP Pulse Ox 98.4 F 100 15 102/72 96 06/03/18 22:33 06/03/18 22:33 06/03/18 22:33 06/03/18 22:33 06/03/18 22:33 - Attending Attestation I have seen and examined the patient with Dr. Walls and agree with his/ her assessment and plan. Unfortunate 58-year-old male with colon cancer status post right hemicolectomy complicated by episodes of SBO due to peritoneal metastatic deposits, presented to the outside hospital ED with left lower quadrant pain, nausea, and vomiting. CT scan done showed high-grade small bowel obstruction due to known peritoneal carcinomatosis. Afebrile, hemodynamically stable, and exam showed distended but soft abdomen without rebound/guarding/rigidity. We will manage with NPO, IV fluid with potassium supplements, analgesics, anti-emetics, and NG tube on intermittent suction. Surgery has been consulted and called from [facility]. Of note, he is on palliative chemotherapy with xeloda and panitumumab. Oncology notes from 05/08 reviewed; plan was to continue chemotherapy every [address] imaging on 05/15 show evidence of peritoneal implants throughout the abdomen and pelvis with increasing size of soft tissue mass along the anterior abdominal wall. Brief discussion on goals of care was made with the patient and he would like to remain full code for now. Osito Frank MD - Assessment and plan (1) CAD (coronary artery disease) Current Visit: No Status: Chronic Qualifiers: Coronary Disease-Associated Artery/Lesion type: [place] artery [place] vs. 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 Diabetes mellitus complication status: without complication Qualified Code(s): E11.9 - Type 2 diabetes mellitus without complications (3) Hypertension Current Visit: Yes Status: Chronic Qualifiers: Hypertension type: essential hypertension Qualified Code(s): I10 - Essential (primary) hypertension (4) Hyperlipidemia Current Visit: No Status: Chronic Qualifiers: Hyperlipidemia type: unspecified Qualified Code(s): E78.5 - Hyperlipidemia , unspecified (5) Colon cancer Current Visit: Yes Status: Acute Qualifiers: Colon location: overlapping sites Qualified Code(s): C18.8 - Malignant neoplasm of overlapping sites of colon (6) Small bowel obstruction Current Visit: Yes Status: Acute (7) DVT prophylaxis Current Visit: Yes Status: Acute - Time Spent With Patient Total time spent is greater than 50% in coordination of care (as documented) at patient's floor/unit and/or counseling patient:
[2018-06-04] MEDS ORDERED: *HR* Dextrose 50 % in Water (Syg) 50 ML SYRINGE IVP PRN (02:50)
[2018-06-04] MEDS ORDERED: D5% in Water 1,000 ML IVC PRN (02:50)
[2018-06-04] MEDS ORDERED: Dextrose Gel 15 GM/37.5 ML TUBE PO PRN ×2 (02:50)
[2018-06-04] MEDS: 0.9 % Sodium Chloride w KCl 40 MEQ/1,000 ML MLS IVC SCH ×2 (02:52→17:36)
[2018-06-04] MEDS: *HR* Heparin 5,000 UNIT/ML VIAL SQ SCH ×3 (05:48→21:41)
[2018-06-04] MEDS: Insulin LISPRO 300 UNITS/3 ML VIAL SQ SCH ×4 (05:57→23:51)
[2018-06-04 06:08] LABS: Basophils % 0.3 %; Eosinophils # 0.1 K/mcL (0.0-0.6); Eosinophils % 2.4 %; Hemoglobin 11.1 g/dL (12.9-16.9); Immature Granulocytes % 0.7 % (0-4); Lymphocytes # 1.3 K/mcL (0.6-4.6); Lymphocytes % 22.4 %; Mean Corpuscular HGB Conc 31.7 g/dL (31.6-35.5); Mean Corpuscular Hemoglobin 27.9 pg (28.0-33.3); Mean Corpuscular Volume 87.9 fL (83.0-100.0); Mean Platelet Volume 10.6 fL (9.4-12.4); Monocytes # 0.6 K/mcL (0.0-1.3); Monocytes % 10.4 %; Neutrophils # 3.8 K/mcL (1.6-8.9); Platelet Count 173 K/mcL (140-400); Red Blood Count 3.98 M/mcL (4.19-5.50); Red Cell Distribution Width 17.2 % (11.5-14.5); Segmented Neutrophils % 63.8 %
[2018-06-04 06:30] LABS: BUN/Creatinine Ratio 31 (6-26); Blood Urea Nitrogen 12 mg/dL (6-20); Carbon Dioxide 20 mEq/L (23-29); Chloride 108 mEq/L (98-107); Glucose 81 mg/dL (70-105); Osmolality,Calculated 283 (280-300); Potassium 3.4 mEq/L (3.5-5.1); Sodium 137 mEq/L (136-145); eGFR For Non-African Americans > 60 (> 60)
[2018-06-04] MEDS ORDERED: Potassium Chloride 40 MEQ, Lidocaine 1% 2 ML in D5% in Water 500 ML IVPB ONE (07:00)
[2018-06-04] MEDS: OXYCODONE Oral CONC 10 MG/0.5 ML ORAL.SYG SL PRN ×3 (07:06→20:00)
[2018-06-04 07:21] LABS: Magnesium 1.2 mg/dL (1.6-2.6)
[2018-06-04 08:15] LABS: Estimated Average Glucose 126 mg/dl
[2018-06-04] MEDS: Ondansetron 4 MG/2 ML VIAL IVP PRN ×2 (12:54→20:01)
--- NOTE | 2018-06-04 13:19 | Event Note ---
Date of Encounter: 06/04/18 Time of Encounter: 10:35 58-year-old male with history of stage IV colon cancer status post right hemicolectomy, CHF, CAD status post stents, hypertension, diabetes, tobacco abuse, was admitted with abdominal pain, nausea and vomiting. CT abdomen/pelvis done in the emergency room showed possible developing small bowel obstruction, worsening soft tissue swelling in the anterior abdominal wall with invasion of the left rectus abdominis muscle, concerning for metastatic disease. Seen and examined at bedside. Alert and oriented 3. Abdomen-soft, nontender, mildly distended, hyperactive bowel sounds Partial small bowel obstruction- continue conservative medical management for now. Bowel rest, IV hydration, nasogastric tube to suction-minimal to no output noted. Pain control, when necessary antiemetics. IV PPI. Surgery on board. Stage IV colon cancer-confirms CODE STATUS is full code for now. Follows with oncology, on palliative chemotherapy with xeloda, Panitumumab. Resume home medications. Will consult oncology for further recommendations;
--- NOTE | 2018-06-04 13:52 | General Surgery Consult Note ---
<Janie Horner L - Last Filed: 06/04/18 13:47> Date of Encounter: 06/04/18 Time of Encounter: 13:47 Assessment and Plan (1) Colon cancer Current Visit: Yes Status: Acute Last seen by Dr. Junior in April 2018. Per record review noted "peritoneal carcinomatosis, bowel obstruction due to recurrent colon cancer, s/p biopsy of metastatic disease in the abdomen consistent with recurrent colon adenocarcinoma , no distant mets to liver or lungs noted, no further role for surgery." No advance directives in place. Patient is agreeable to palliative care consult for goals of care. Primary team notified. Qualifiers: Colon location: overlapping sites Qualified Code(s): C18.8 - Malignant neoplasm of overlapping sites of colon (2) Abnormal CT of the abdomen Current Visit: Yes Status: Acute Per radiology review at [facility], stomach is grossly unremarkable and appearance. Dilated small bowel loops measuring up to 5.9 cm. Transition point in the anterior aspect of the abdomen on axial image 43 through 46 with circumferential appearing small bowel lesion with soft tissue enhancement. There is peritoneal carcinomtosis with diffuse nodularity of the mesentery and regional the omentum. Right hemicolectomy changes. Appendix is not visualized. Abdominal wall appears intact. Soft tissues are unremarkable. Impressions: high-grade small bowel obstruction secondary to obstructing mass. There is peritoneal carcinoma ptosis likely related to patients known malignancy. Small amount of free fluid. Chronic pancreatitis. Images have been loaded into [employer] and are available for review. Patient was admitted in October 2017 with noted possible small bowel obstruction. A small bowel follow-through was unremarkable and patient was recommended to follow-up with his primary surgical team at [facility]. Patient surgical history has been at [facility] and he is noted to be undergoing palliative chemotherapy. Given above, anticipate patient as a poor surgical candidate. Recommend supportive care and discomfort management, consider palliative care consult ( patient is agreeable to goals of care consult). Plan: Agree with bowel rest and decompression per [employer] for comfort supportive care and discomfort management Palliative care consult per primary team Further recommendations pending attending attestation History of Present Illness Consult date: 06/04/18 Reason for consult: other (possible SBO) Requesting physician: Mia Oliva History of present illness: Subjective information obtained via patient interview, record review and verification through patient interview. PMH, PSH, Past social history reviewed per [employer]. Tate is a 58 year old male with a pertinent past medical history colon cancer, adenocarinoma s/p right hemicolectomy [facility] 2015, recurrent partial SBO due to lesions. He was hospitalized in 2017 ([facility]) with symptoms of SBO and pt reports "they straightened some kinked bowel, but no further resections," and 10/2017 at [facility] for (small bowel follow-through unremarkable and patient was recommended to follow with his primary surgery team. He reports an average of 5-6 dark and pressured BMs daily since the [facility], but his last BM was 06/03/2018. He denies flatus. Per record review, he last saw Dr. Junior in April 2018 and is noted to have metastatic colon cancer, carcinomatosis, and palliative chemo. No advance directive was in place. He denies fever, chills, headache, dizziness, syncope, near syncope, urinary signs or symptoms. He endorsed abdominal discomfort, sharp, colicky, 8 out of 10, abdominal distention, and nausea prior to arrival. He states he just received a dose of pain medication and his discomfort is currently relieved. He states the NG tube placed at [facility] has helped with his abdominal discomfort and distention. Surgery has been asked to evaluate this patient for recommendations regarding a possible recurrent small bowel obstruction versus obstruction due to mass. Past Med Surg Social Fam HX - Past Medical History Source: patient, old records reviewed Medical history: CHF, coronary artery disease, diabetes, hyperlipidemia, hypertension Psychiatric history: anxiety, depression, panic disorder, PTSD, prior suicide attempt, schizophrenia - Past Surgical History Surgical History: angioplasty/stent - Social History Smoking Status: Former smoker Smokeless Tobacco Status: No Alcohol use: none Drug use: none - Family History Sister Living Status: Still Living Hx Family Cardiac Disorders: Yes Hx Family Respiratory Disorders: Yes Hx Family Cancer: No Hx Family GI Disorders: No Hx Family Endocrine Disorder: Yes Hx Family Neuromuscular Disorders: Yes Hx Family Neurologic Disorders: No Hx Family HEENT Disorders: No Hx Family Autoimmune Disorders: No Medications and Allergies Aspirin Enteric Coated [Aspirin EC] 81 mg PO DAILY 05/29/16 [History] Ergocalciferol (VITAMIN D2) [Vitamin D2 (50,000 UNIT)] 10,000 unit PO SUWE 05/29 [History] Metformin HCl [Glucophage] 1,000 mg PO BID 05/29/16 [History] Metoprolol [Lopressor] 50 mg PO BID 05/29/16 [History] Nitroglycerin 0.4 mg SL Q5MIN PRN 05/29/16 [History] Rosuvastatin [Crestor] 40 mg PO DAILY 05/29/16 [History] Ticagrelor [Brilinta] 90 mg PO BID #60 tablet 05/30/16 [Rx] Diphenoxylate/Atropine [Lomotil 2.5 mg/0.025 mg] 1 each PO QID PRN #30 tablet [Rx] Loperamide [Imodium] 2 mg PO Q4HR PRN #30 capsule 10/24/17 [Rx] Ondansetron [Zofran] 8 mg PO Q8HR #90 tablet 10/24/17 [Rx] Prochlorperazine Maleate [Compazine] 10 mg PO Q8HR PRN #90 tablet 10/24/17 [Rx] Empagliflozin/Linagliptin [Glyxambi 10 mg-5 mg Tablet] 1 tab PO DAILY 11/02/17 [ History] Glimepiride [Amaryl] 4 mg PO DAILY 11/02/17 [History] Iron Polysaccharide Complex [Pro Fe] 180 mg PO DAILY 11/02/17 [History] Omeprazole [PriLOSEC] 40 mg PO DAILY 11/02/17 [History] amLODIPine [Norvasc] 10 mg PO DAILY 11/02/17 [History] Promethazine [Phenergan] 25 mg PO Q6HR #90 tablet 11/20/17 [Rx] Clindamycin Phosphate [Cleocin T] 30 gm TP DAILY #1 gel..gram. 12/11/17 [Rx] Docusate [Colace] 100 mg PO HS PRN #30 capsule 12/11/17 [Rx] Hydrocortisone 1% CREAM [Cortaid] 14 gm TP DAILY #1 bottle 12/11/17 [Rx] Magnesium Oxide [Magnesium] 400 mg PO BID #60 tablet 12/11/17 [Rx] Capecitabine [Xeloda] 1,000 mg PO BID #56 tablet 12/26/17 [Rx] Clindamycin Phosphate [Clindagel] 75 ml TP DAILY #30 gel..ml. 01/01/18 [Rx] Doxycycline 100 mg PO BID #60 capsule 01/01/18 [Rx] Hydrocortisone 1% OINT [Cortaid] 1 appl TP BID #1 tube 01/01/18 [Rx] OxyCODONE Immed Rel [Roxicodone 5 MG] 10 mg PO BID PRN 30 Days #120 tablet 06/01 [Rx] Fenofibrate [Tricor] 54 mg PO DAILY 06/04/18 [History] Insulin Glargine [Lantus] 70 unit SQ HS 06/04/18 [History] Zolpidem [Ambien] 5 mg PO HS PRN 06/04/18 [History] 3 Allergy/AdvReac Type Severity Reaction Status Date / Time bee venom protein (honey bee) Allergy Difficulty Verified 05/08/18 07:58 Breathing Penicillins [PCN] AdvReac Hives Verified 05/08/18 07:58 Review of Systems All systems PM: reviewed and no additional remarkable complaints except as stated All systems PM: The remainder of the systems were reviewed and are negative General Surgery Exam Initial Vital Signs Temp Pulse Resp BP Pulse Ox 98.4 F 100 15 102/72 96 06/03/18 22:33 06/03/18 22:33 06/03/18 22:33 06/03/18 22:33 06/03/18 22:33 VITAL SIGNS: Reviewed. See [facility] GENERAL: In no apparent distress. HEENT: Normocephalic, atraumatic, pupils are equal and reactive, extraocular motions intact, oropharynx is pink and moist, there is no neck adenopathy or JVD noted. CHEST/RESPIRATORY: The thorax is free from signs of trauma. Lung sounds: clear to auscultation, normal respiratory effort CARDIAC: Regular rate and rhythm. Normal S1 and S2, without murmurs, gallops, or rubs. VASCULAR: No Edema. 2+ peripheral pulses. ABDOMEN: soft, mildly tender, nondistended, faint and hypoactive bowel sounds. NG tube in place and with minimal output. MUSCULOSKELETAL: No apparent abnormalities. NEUROLOGIC EXAM: Alert and oriented x 3. Speech normal. Follows commands. PSYCHIATRIC: Mood normal. SKIN: No rash or lesions. Exam Initial Vital Signs Temp Pulse Resp BP Pulse Ox 98.4 F 100 15 102/72 96 06/03/18 22:33 06/03/18 22:33 06/03/18 22:33 06/03/18 22:33 06/03/18 22:33 Results - Labs 06/04/18 05:46 06/04/18 05:46 Abnormal lab results RBC 3.98 M/mcL (4.19-5.50) L 06/04/18 05:46 Hgb 11.1 g/dL (12.9-16.9) L 06/04/18 05:46 Hct 35.0 % (37.5-50.1) L 06/04/18 05:46 MCH 27.9 pg (28.0-33.3) L 06/04/18 05:46 RDW 17.2 % (11.5-14.5) H 06/04/18 05:46 Potassium 3.4 mEq/L (3.5-5.1) L 06/04/18 05:46 Chloride 108 mEq/L (98-107) H 06/04/18 05:46 Carbon Dioxide 20 mEq/L (23-29) L 06/04/18 05:46 Creatinine 0.39 mg/dL (0.70-1.30) L 06/04/18 05:46 BUN/Creatinine Ratio 31 (6-26) H 06/04/18 05:46 Hemoglobin A1c 6.0 % (-5.6) H 06/04/18 05:46 Magnesium 1.2 mg/dL (1.6-2.6) L 06/04/18 05:46 Diabetes panel 06/04/18 06/04/18 Range/Units 05:46 05:46 Sodium 137 (136-145) mEq/L Potassium 3.4 L (3.5-5.1) mEq/L Chloride 108 H (98-107) mEq/L Carbon Dioxide 20 L (23-29) mEq/L BUN 12 (6-20) mg/dL Creatinine 0.39 L (0.70-1.30) mg/dL Glucose 81 (70-105) mg/dL Hemoglobin A1c 6.0 H ( - 5.6) % Calcium 9.0 (8.6-10.3) mg/dL Calcium panel 06/04/18 Range/Units 05:46 Calcium 9.0 (8.6-10.3) mg/dL Pituitary panel 06/04/18 Range/Units 05:46 Sodium 137 (136-145) mEq/L Potassium 3.4 L (3.5-5.1) mEq/L Chloride 108 H (98-107) mEq/L Carbon Dioxide 20 L (23-29) mEq/L BUN 12 (6-20) mg/dL Creatinine 0.39 L (0.70-1.30) mg/dL Glucose 81 (70-105) mg/dL Calcium 9.0 (8.6-10.3) mg/dL Adrenal panel 06/04/18 Range/Units 05:46 Sodium 137 (136-145) mEq/L Potassium 3.4 L (3.5-5.1) mEq/L Chloride 108 H (98-107) mEq/L Carbon Dioxide 20 L (23-29) mEq/L BUN 12 (6-20) mg/dL Creatinine 0.39 L (0.70-1.30) mg/dL Glucose 81 (70-105) mg/dL Calcium 9.0 (8.6-10.3) mg/dL All other labs normal. - Imaging CT scan - abdomen: report reviewed CT scan - pelvis: report reviewed Consult Discharge Plan - Plan Referrals: Lois Yun, CLINICAL SERVICES ASSISTANT [Primary Care Provider] - <Davion Barker - Last Filed: 06/05/18 07:26> Date of Encounter: 06/05/18 Assessment and Plan (1) Colon cancer Current Visit: No Status: Acute Qualifiers: Colon location: overlapping sites Qualified Code(s): C18.8 - Malignant neoplasm of overlapping sites of colon (2) Abnormal CT of the abdomen Current Visit: No Status: Acute Review of Systems All systems PM: The remainder of the systems were reviewed and are negative General Surgery Exam Initial Vital Signs Temp Pulse Resp BP Pulse Ox 98.4 F 100 15 102/72 96 06/03/18 22:33 06/03/18 22:33 06/03/18 22:33 06/03/18 22:33 06/03/18 22:33 Exam Initial Vital Signs Temp Pulse Resp BP Pulse Ox 98.4 F 100 15 102/72 96 06/03/18 22:33 06/03/18 22:33 06/03/18 22:33 06/03/18 22:33 06/03/18 22:33 Results - Labs 06/04/18 05:46 06/04/18 05:46 Abnormal lab results RBC 3.98 M/mcL (4.19-5.50) L 06/04/18 05:46 Hgb 11.1 g/dL (12.9-16.9) L 06/04/18 05:46 Hct 35.0 % (37.5-50.1) L 06/04/18 05:46 MCH 27.9 pg (28.0-33.3) L 06/04/18 05:46 RDW 17.2 % (11.5-14.5) H 06/04/18 05:46 Potassium 3.4 mEq/L (3.5-5.1) L 06/04/18 05:46 Chloride 108 mEq/L (98-107) H 06/04/18 05:46 Carbon Dioxide 20 mEq/L (23-29) L 06/04/18 05:46 Creatinine 0.39 mg/dL (0.70-1.30) L 06/04/18 05:46 BUN/Creatinine Ratio 31 (6-26) H 06/04/18 05:46 Hemoglobin A1c 6.0 % (-5.6) H 06/04/18 05:46 Magnesium 1.2 mg/dL (1.6-2.6) L 06/04/18 05:46 Diabetes panel 06/04/18 Range/Units 05:46 Hemoglobin A1c 6.0 H ( - 5.6) % All other labs normal. - Attending Attestation I have personally seen and examined the patient. I have reviewed pertinent labs , imaging, progress notes, including this one. I agree with the above assessment and plan and wish to include the following... I strongly recommend transfer to [facility] for his surgical team to evaluate; General surgery will sign off.
--- NOTE | 2018-06-04 15:22 | Oncology Inp Consult Note ---
<Kendra Tee L - Last Filed: 06/04/18 17:30> Date of Encounter: 06/04/18 Time of Encounter: 15:00 Assessment and Plan (1) Colon cancer Status: Acute Assessment and plan: Recurrent colon adenocarcinoma with peritoneal carcinamatosis, no distant metastatic disease in liver or chest. Current treatment includes Palliative chemotherapy with Xeloda (2 weeks on, 1 wek off with start of chemotherapy cycle), Oxaliplatin, panitumumab Q3W. Last Treatment: 05/08/18 Patient was planned to follow up after restaging scans. CT Chest/Abdomen/Pelvis 05/15/18 revealed new evidence of peritoneal implants throughout the abdomen pelvis, with a small amount of ascites, enlarging soft tissue along the anterior abdominal wall, an enlarging area of soft tissue within the incision site and dilation of small bowel concerning for ileus or early obstruction. CT abdomen from [facility] per admission report reveals: High-grade small bowel obstruction secondary to known colonic mass. Chronic pancreatitis. Peritoneal carcinomatosis. CEA 10.6 on 05/08/18 Plan: Awaiting oncologist final review, he appears to have radiographic and biochemical progression of his cancer. Treatment change may be considered dependant upon his recovery from SBO which is being treated supportively, surgical intervention is not recommended per surgical team May consider palliative care consult dependant upon his response to conservative treatment, but at this time recommend continued supportive measures and monitoring for improvement prior to consulting palliative He is interested in pursuing treatment options in future once acute issues resolve Qualifiers: Colon location: overlapping sites Qualified Code(s): C18.8 - Malignant neoplasm of overlapping sites of colon (2) Small bowel obstruction Status: Acute Assessment and plan: CT abdomen/pelvis from [facility] per admission report reveals: High-grade small bowel obstruction secondary to known colonic mass. Surgery has been consulted, recommendations reviewed and appreciated. Plan at this time includes bowel rest, NG LIWS, supportive care - Data of Consult Patient: known to practice within the last 3 years Consult date: 06/04/18 Requesting Physician: Mia Oliva MD Primary Care Provider: Lois Yun, - Consult Narrative Reason for consult: Colon Adenocarcinoma History of present illness: Mr. Jansen is a 58 year old male with past medical history significant for CHF, CAD, S/P stent placement June 2016, history of diabetes mellitus, hyperlipidemia, HTN, with stage II A, T3 N0 adenocarcinoma status post a right hemicolectomy--moderately differentiated adenocarcinoma by pathology margins were negative for tumor, tumor invading muscularis propria extending into pericolonic tissue 16 lymph nodes negative for tumor CT chest was negative for malignancy at that time. Recurrence in September 2017, CT chest/abdomen/pelvis revealed dilated loops of small bowel with transition point mass causing obstruction and possible peritoneal implants. Core needle biopsy of peritoneal implant revealed adenocarcinoma which was CK 20 positive CK 7 positive and CD X2 positive. He began palliative chemotherapy with xeloda, oxaliplatin 11/20/17 panitumumab added, plan to continue q 3 wks until progression. Mr. Jansen presented to [facility] on 06/03/18 with report of increasing mid, upper abdominal pain, nausea and vomiting. No exacerbating or relieving measures. He describes loose bowel movements since his hemicolectomy, he has not had a BM in about 2 days now. He describes chest pain when vomiting, reports clear vomit. CT abdomen at [facility] reveals: High-grade small bowel obstruction secondary to known colonic mass, Chronic pancreatitis and Peritoneal carcinomatosis. He describes his appetite as generally good but recently decreased. He denies fever , chills, headache, visual changes, calf pain or SOB. He describes intermittent peripheral parasthesias for about 2 weeks following chemo, which then resolve on week #3. He reports an improvement within his symptoms since admission. Past Med Surg Social Fam HX - Past Medical History Medical history: CHF, coronary artery disease, diabetes, hyperlipidemia, hypertension Psychiatric history: anxiety, depression, panic disorder, PTSD, prior suicide attempt, schizophrenia - Past Surgical History Surgical History: angioplasty/stent - Social History Smoking Status: Former smoker Smokeless Tobacco Status: No Alcohol use: none Drug use: none - Family History Sister Living Status: Still Living Hx Family Cardiac Disorders: Yes Hx Family Respiratory Disorders: Yes Hx Family Cancer: No Hx Family GI Disorders: No Hx Family Endocrine Disorder: Yes Hx Family Neuromuscular Disorders: Yes Hx Family Neurologic Disorders: No Hx Family HEENT Disorders: No Hx Family Autoimmune Disorders: No Medications and Allergies Aspirin Enteric Coated [Aspirin EC] 81 mg PO DAILY 05/29/16 [History] Ergocalciferol (VITAMIN D2) [Vitamin D2 (50,000 UNIT)] 10,000 unit PO SUWE 05/29 [History] Metformin HCl [Glucophage] 1,000 mg PO BID 05/29/16 [History] Metoprolol [Lopressor] 50 mg PO BID 05/29/16 [History] Nitroglycerin 0.4 mg SL Q5MIN PRN 05/29/16 [History] Rosuvastatin [Crestor] 40 mg PO DAILY 05/29/16 [History] Ticagrelor [Brilinta] 90 mg PO BID #60 tablet 05/30/16 [Rx] Diphenoxylate/Atropine [Lomotil 2.5 mg/0.025 mg] 1 each PO QID PRN #30 tablet [Rx] Loperamide [Imodium] 2 mg PO Q4HR PRN #30 capsule 10/24/17 [Rx] Ondansetron [Zofran] 8 mg PO Q8HR #90 tablet 10/24/17 [Rx] Prochlorperazine Maleate [Compazine] 10 mg PO Q8HR PRN #90 tablet 10/24/17 [Rx] Empagliflozin/Linagliptin [Glyxambi 10 mg-5 mg Tablet] 1 tab PO DAILY 11/02/17 [ History] Glimepiride [Amaryl] 4 mg PO DAILY 11/02/17 [History] Iron Polysaccharide Complex [Pro Fe] 180 mg PO DAILY 11/02/17 [History] Omeprazole [PriLOSEC] 40 mg PO DAILY 11/02/17 [History] amLODIPine [Norvasc] 10 mg PO DAILY 11/02/17 [History] Promethazine [Phenergan] 25 mg PO Q6HR #90 tablet 11/20/17 [Rx] Clindamycin Phosphate [Cleocin T] 30 gm TP DAILY #1 gel..gram. 12/11/17 [Rx] Docusate [Colace] 100 mg PO HS PRN #30 capsule 12/11/17 [Rx] Hydrocortisone 1% CREAM [Cortaid] 14 gm TP DAILY #1 bottle 12/11/17 [Rx] Magnesium Oxide [Magnesium] 400 mg PO BID #60 tablet 12/11/17 [Rx] Capecitabine [Xeloda] 1,000 mg PO BID #56 tablet 12/26/17 [Rx] Clindamycin Phosphate [Clindagel] 75 ml TP DAILY #30 gel..ml. 01/01/18 [Rx] Doxycycline 100 mg PO BID #60 capsule 01/01/18 [Rx] Hydrocortisone 1% OINT [Cortaid] 1 appl TP BID #1 tube 01/01/18 [Rx] OxyCODONE Immed Rel [Roxicodone 5 MG] 10 mg PO BID PRN 30 Days #120 tablet 06/01 [Rx] Fenofibrate [Tricor] 54 mg PO DAILY 06/04/18 [History] Insulin Glargine [Lantus] 70 unit SQ HS 06/04/18 [History] Zolpidem [Ambien] 5 mg PO HS PRN 06/04/18 [History] 3 Allergy/AdvReac Type Severity Reaction Status Date / Time bee venom protein (honey bee) Allergy Difficulty Verified 05/08/18 07:58 Breathing Penicillins [PCN] AdvReac Hives Verified 05/08/18 07:58 Constitutional: Present: anorexia. Absent: chills, fatigue, fever(s), frequent falls, weakness, weight loss Eyes: Absent: change in vision Nose, mouth and throat: Absent: dysphagia Cardiovascular: Absent: chest pain, palpitations Respiratory: Absent: cough, dyspnea Gastrointestinal: Present: as per HPI, abdominal pain, change in bowel habits, nausea, vomiting. Absent: hematemesis, hematochezia, melena Additional comments: denies dysuria Musculoskeletal: Absent: neck pain Integumentary: Absent: rash Neurological: Present: as per HPI, paresthesias. Absent: focal weakness, frequent falls Psychiatric: Present: as per HPI Endocrine: Present: as per HPI Hematologic/Lymphatic: Present: as per HPI Oncology - Exam - Constitutional Vitals: Temp Pulse Resp BP Pulse Ox 98.1 F 95 14 120/82 97 06/04/18 14:50 06/04/18 14:50 06/04/18 14:50 06/04/18 14:50 06/04/18 14:50 General appearance: cooperative, no acute distress, no febrile - Head Head exam: Present: atraumatic - ENT Additional comments: NG to suction - Respiratory Respiratory exam: Present: CTAB. Absent: respiratory distress - Cardiovascular Cardiovascular exam: Present: RRR, +S1, +S2 - GI/Abdominal GI/Abdominal exam: Present: normal bowel sounds, soft, tenderness. Absent: distended, rebound Additional comments: slightly firm - Extremities Exam Extremities exam: Present: normal inspection. Absent: calf tenderness - Neurological Exam Neurological exam: Present: alert, oriented X3, no focal deficits, strengths equal and symetr throughout - Psychiatric Psychiatric exam: Present: normal affect, normal mood - Skin Skin exam: Present: dry, intact, normal color, warm Consult Discharge Plan - Plan Referrals: Lois Yun, DEXTRINE MIXER [Primary Care Provider] - <Shaheen Lyle - Last Filed: 06/04/18 21:38> Date of Encounter: 06/04/18 - Data of Consult Requesting Physician: Mia Oliva MD Primary Care Provider: Lois Yun, - Consult Narrative History of present illness: Mr. Jansen is a 58 year old male Oncology - Exam - Constitutional Vitals: Temp Pulse Resp BP Pulse Ox 97.8 F 104 17 166/90 96 06/04/18 19:37 06/04/18 19:37 06/04/18 19:37 06/04/18 19:37 06/04/18 19:37 Oncology - Results Labs: 3 06/04/18 06/04/18 06/04/18 16:57 05:54 05:46 WBC RBC Hgb Hct MCV MCH MCHC RDW Plt Count MPV Immature Gran % Seg Neutrophils % Lymphocytes % Monocytes % Eosinophils % Basophils % Neutrophils # Lymphocytes # Monocytes # Eosinophils # Basophils # Sodium Potassium Chloride Carbon Dioxide BUN Creatinine Est GFR ( Amer) Est GFR (Non-Af Amer) BUN/Creatinine Ratio Glucose POC Glucose 81 78 Est Mean Plasma Glucose 126 Hemoglobin A1c 6.0 H Calculated Osmolality Calcium Magnesium 3 06/04/18 06/04/18 05:46 05:46 WBC 6.0 RBC 3.98 L Hgb 11.1 L Hct 35.0 L MCV 87.9 MCH 27.9 L MCHC 31.7 RDW 17.2 H Plt Count 173 MPV 10.6 Immature Gran % 0.7 Seg Neutrophils % 63.8 Lymphocytes % 22.4 Monocytes % 10.4 Eosinophils % 2.4 Basophils % 0.3 Neutrophils # 3.8 Lymphocytes # 1.3 Monocytes # 0.6 Eosinophils # 0.1 Basophils # 0.0 Sodium 137 Potassium 3.4 L Chloride 108 H Carbon Dioxide 20 L BUN 12 Creatinine 0.39 L Est GFR ( Amer) > 60 Est GFR (Non-Af Amer) > 60 BUN/Creatinine Ratio 31 H Glucose 81 POC Glucose Est Mean Plasma Glucose Hemoglobin A1c Calculated Osmolality 283 Calcium 9.0 Magnesium 1.2 L - Attending Attestation I have seen and examined Mr. Jansen and agree with Ms. Tee's assessment. He has metastatic colon cancer with associated peritoneal carcinomatosis. Unfortunately, his disease has progressed by CT imaging 05/15/18 by personal review. He has developed SBO as well. Supportive measures with bowel rest and NG tube placement instituted. Appreciate surgical opinion and assistance. Hopefully with tincture of time/bowel rest symptoms will improve. Discussed possibility that this may not resolve and grave situation we may be in. Prognosis discussed as well today. If he does recover, therapy will need to be altered to FOLFIRI. We will continue to follow.
[2018-06-04] MEDS ORDERED: Melatonin 3 MG TABLET PO ONE (23:55)
[2018-06-05] MEDS: OXYCODONE Oral CONC 10 MG/0.5 ML ORAL.SYG SL PRN ×2 (02:03→08:03)
[2018-06-05 06:48] LABS: Basophils % 0.5 %; Eosinophils # 0.1 K/mcL (0.0-0.6); Eosinophils % 2.5 %; Hematocrit 36.9 % (37.5-50.1); Hemoglobin 11.8 g/dL (12.9-16.9); Immature Granulocytes % 0.7 % (0-4); Lymphocytes # 1.3 K/mcL (0.6-4.6); Lymphocytes % 28.6 %; Mean Corpuscular Hemoglobin 28.9 pg (28.0-33.3); Mean Corpuscular Volume 90.4 fL (83.0-100.0); Mean Platelet Volume 10.7 fL (9.4-12.4); Monocytes # 0.5 K/mcL (0.0-1.3); Monocytes % 11.9 %; Neutrophils # 2.5 K/mcL (1.6-8.9); Platelet Count 157 K/mcL (140-400); Red Blood Count 4.08 M/mcL (4.19-5.50); Red Cell Distribution Width 16.8 % (11.5-14.5); Segmented Neutrophils % 55.8 %
[2018-06-05] MEDS: Insulin LISPRO 300 UNITS/3 ML VIAL SQ SCH ×3 (07:54→18:10)
[2018-06-05] MEDS: Ondansetron 4 MG/2 ML VIAL IVP PRN (08:02)
[2018-06-05] MEDS: *HR* Heparin 5,000 UNIT/ML VIAL SQ SCH ×3 (08:03→21:05)
[2018-06-05 09:11] LABS: BUN/Creatinine Ratio 31 (6-26); Blood Urea Nitrogen 15 mg/dL (6-20); Calcium 8.7 mg/dL (8.6-10.3); Carbon Dioxide 15 mEq/L (23-29); Chloride 110 mEq/L (98-107); Glucose 95 mg/dL (70-105); Magnesium 1.4 mg/dL (1.6-2.6); Osmolality,Calculated 283 (280-300); Potassium 4.2 mEq/L (3.5-5.1); Sodium 136 mEq/L (136-145); eGFR For Non-African Americans > 60 (> 60)
--- NOTE | 2018-06-05 10:00 | Palliative - Consult Note ---
Date of Encounter: 06/05/18 Time of Encounter: 09:00 - Assessment and Plan (1) Goals of care, counseling/discussion Current Visit: Yes Status: Acute Assessment and plan: Conducted bedside discussion with patient. No family present. Patient reports that he lives with his sister Mayda [phone]) in [place], [place]. He reports having 4 adult children Odilon, Irwin, Pan and Abigail. He states that he only talks to Irwin and Odilon's Karrie. He declined having them listed as a contact. Patient is disabled but is able to perform ADL's without assistance. He independently ambulates and reports that prior to admission that his appetite had been good. Discussed goals of care. Patient is aware of current cancer diagnosis and is able to freely discuss his treatment regimen prior to admission. We discussed his desires for treatment. The patient states that he still desires to have palliative chemo if possible. I explained that if at anytime he decided to forgo any other cancer treatment or if his prognosis indicates that he would no longer benefit from treatment that hospice care and comfort care approach would be an option. He verbalized understanding. We further discussed his code status wishes for life support. He desires to remain a full code for now. I did explain that various DNR statuses explained that by drafting advanced directives that he can communicate his wishes. He desires to talk with Mayda about his wishes before drafting. I offered his a copy to review and he accepted. I will provide a copy at bedside. Patient remains FULL CODE. (2) Cancer associated pain Current Visit: Yes Status: Acute Assessment and plan: Patient reports feeling better but states that abdominal pain remains constant. Rates his pain 6/10. He reports an ache across his lower abdominal area. No nausea, he is passing gas and he had a BM. We discussed is ability to tolerate his pain pills at home. He currently takes oxycodone 10 mg BID. We discussed transitioning to a fentanyl patch for better control and decreased GI upset. Goals are for mcfp relief. He verbalized that the SL Oxycodone worked better for him. Plan: - Start 25 mcg fentanyl patch - Leave Oxycodone SL for BTP management. - Education provided about the transdermal patch. Applying, s/s, and disposing of the patch once it is removed. Patient agrees to patch. Will monitor progress. (3) Small bowel obstruction, partial Current Visit: Yes Status: Resolved Assessment and plan: Conservative management: - NG LWIS - NPO - Treat for pain prn Patient reports BMs and passing gas. Nothing out of NG. 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 Current treatment includes Palliative chemotherapy with Xeloda (2 weeks on, 1 wek off with start of chemotherapy cycle), Oxaliplatin, panitumumab Q3W. Last Treatment: 05/08/18. Oncology following Colonic mass - Surgery consulted. No surgical intervention Qualifiers: Colon location: overlapping sites Qualified Code(s): C18.8 - Malignant neoplasm of overlapping sites of colon (5) Nausea Current Visit: No Status: Acute Assessment and plan: Zofran PRN. Denies nausea. Palliative-CN HPI - Data of Consult Patient: new to practice Consult date: 06/05/18 Requesting Physician: Mia Oliva MD Primary Care Provider: Lois Yun, - Consult Narrative Palliative Care/Comfort Measures: Palliative care Reason for consult: Goals of Care History of present illness: Mr. Jansen is a 58 year old male admitted with abdominal pain and high grade SBO secondary to colonic mass. Patient with history of CHF, CAD, DM, HTN, and hyperlipidemia. 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 Current treatment includes Palliative chemotherapy with Xeloda (2 weeks on, 1 wk off with start of chemotherapy cycle), Oxaliplatin, panitumumab Q3W. Last Treatment: 05/08/18. Patient is followed by [facility]. Oncology note and Surgical note reviewed. Patient being treated conservatively with NG to LWIS, NPO and pain management. Now having BMs and + BS. Reports aching pain to lower abdominal area. Patient agrees to consult. Medical labs and diagnostics reviewed. This palliative care consult is for goals of care discussion. CC: Mia Oliva MD Past Med Surg Social Fam HX - Past Medical History Source: patient, old records reviewed, nursing notes reviewed Medical history: CHF, coronary artery disease, diabetes, hyperlipidemia, hypertension Psychiatric history: anxiety, depression, panic disorder, PTSD, prior suicide attempt, schizophrenia - Past Surgical History Surgical History: angioplasty/stent - Social History Smoking Status: Current every day smoker Packs per day: 1/2 pack Smokeless Tobacco Status: No Alcohol use: none Drug use: none Occupational status: disabled Current living situation: Home Activity Level: Independent ambulation Recent Out of Country Travel Within the Last 8 Weeks: No Exposure or Possible Exposure to Illness During Travel: No - Family History Sister Living Status: Still Living Hx Family Cardiac Disorders: Yes Hx Family Respiratory Disorders: Yes Hx Family Cancer: No Hx Family GI Disorders: No Hx Family Endocrine Disorder: Yes Hx Family Neuromuscular Disorders: Yes Hx Family Neurologic Disorders: No Hx Family HEENT Disorders: No Hx Family Autoimmune Disorders: No Medications and Allergies Aspirin Enteric Coated [Aspirin EC] 81 mg PO DAILY 05/29/16 [History] Ergocalciferol (VITAMIN D2) [Vitamin D2 (50,000 UNIT)] 10,000 unit PO SUWE 05/29 [History] Metformin HCl [Glucophage] 1,000 mg PO BID 05/29/16 [History] Metoprolol [Lopressor] 50 mg PO BID 05/29/16 [History] Nitroglycerin 0.4 mg SL Q5MIN PRN 05/29/16 [History] Rosuvastatin [Crestor] 40 mg PO DAILY 05/29/16 [History] Ticagrelor [Brilinta] 90 mg PO BID #60 tablet 05/30/16 [Rx] Diphenoxylate/Atropine [Lomotil 2.5 mg/0.025 mg] 1 each PO QID PRN #30 tablet [Rx] Loperamide [Imodium] 2 mg PO Q4HR PRN #30 capsule 10/24/17 [Rx] Ondansetron [Zofran] 8 mg PO Q8HR #90 tablet 10/24/17 [Rx] Prochlorperazine Maleate [Compazine] 10 mg PO Q8HR PRN #90 tablet 10/24/17 [Rx] Empagliflozin/Linagliptin [Glyxambi 10 mg-5 mg Tablet] 1 tab PO DAILY 11/02/17 [ History] Glimepiride [Amaryl] 4 mg PO DAILY 11/02/17 [History] Iron Polysaccharide Complex [Pro Fe] 180 mg PO DAILY 11/02/17 [History] Omeprazole [PriLOSEC] 40 mg PO DAILY 11/02/17 [History] amLODIPine [Norvasc] 10 mg PO DAILY 11/02/17 [History] Promethazine [Phenergan] 25 mg PO Q6HR #90 tablet 11/20/17 [Rx] Clindamycin Phosphate [Cleocin T] 30 gm TP DAILY #1 gel..gram. 12/11/17 [Rx] Docusate [Colace] 100 mg PO HS PRN #30 capsule 12/11/17 [Rx] Hydrocortisone 1% CREAM [Cortaid] 14 gm TP DAILY #1 bottle 12/11/17 [Rx] Magnesium Oxide [Magnesium] 400 mg PO BID #60 tablet 12/11/17 [Rx] Capecitabine [Xeloda] 1,000 mg PO BID #56 tablet 12/26/17 [Rx] Clindamycin Phosphate [Clindagel] 75 ml TP DAILY #30 gel..ml. 01/01/18 [Rx] Doxycycline 100 mg PO BID #60 capsule 01/01/18 [Rx] Hydrocortisone 1% OINT [Cortaid] 1 appl TP BID #1 tube 01/01/18 [Rx] OxyCODONE Immed Rel [Roxicodone 5 MG] 10 mg PO BID PRN 30 Days #120 tablet 06/01 [Rx] Fenofibrate [Tricor] 54 mg PO DAILY 06/04/18 [History] Insulin Glargine [Lantus] 70 unit SQ HS 06/04/18 [History] Zolpidem [Ambien] 5 mg PO HS PRN 06/04/18 [History] 3 Allergy/AdvReac Type Severity Reaction Status Date / Time bee venom protein (honey bee) Allergy Difficulty Verified 05/08/18 07:58 Breathing Penicillins [PCN] AdvReac Hives Verified 05/08/18 07:58 All systems: reviewed and no additional remarkable complaints except as stated Review of systems: abdominal ache, no appetite. - Constitutional Constitutional ROS PAL: decreased appetite, fatigue - EENT Eyes: requires corrective lenses - Gastrointestinal Gastrointestinal: abdominal pain, nausea - Genitourinary Genitourinary ROS male: urinary frequency - Musculoskeletal Musculoskeletal ROS IM: muscle weakness Palliative Care-Exam - Constitutional Vitals: Temp Pulse Resp BP Pulse Ox 98.2 F 100 18 135/86 97 06/05/18 07:04 06/05/18 07:04 06/05/18 07:04 06/05/18 07:04 06/05/18 07:04 General appearance: Present: cooperative, no acute distress - Head Head Exam: Present: atraumatic, normal inspection - Eye Eye exam: Present: PERRL Pupils: Present: PERRL - ENT ENT exam: Present: mucous membranes moist - Expanded ENT Exam Mouth Exam: Present: tongue normal Teeth exam: Present: normal external inspection - Neck Neck exam: Present: full ROM - Respiratory Respiratory exam: Present: CTAB - Cardiovascular Cardiovascular exam: Present: RRR, +S1, +S2 - Expanded Cardiovascular Exam Peripheral pulses: 1+: Femoral (L) PM, Femoral (R) PM, Posterior Tibialis (L), Posterior Tibialis (R), 2+: Carotid (L) PM, Carotid (R) PM, Radial (L), Radial ( R), Dorsalis Pedis (L) PM, Dorsalis Pedis (R) PM - GI/Abdominal Exam GI/Abdominal exam: Present: normal bowel sounds, soft - Rectal Rectal Exam: Present: deferred - Expanded Upper Extremities Exam Shoulder exam: Present: full ROM Upper Arm exam: Present: full ROM Forearm wrist exam: Present: full ROM - Expanded Lower Extremities Exam Upper Leg exam: Present: full ROM - Back Exam Back exam: Present: full ROM - Neurological Exam Neurological exam: Present: alert, oriented X3 - Psychiatric Psychiatric exam: Present: normal affect - Skin Skin exam: Present: pallor, warm Internal Medicine - CN: Reslt - Labs CBC & Chem 7: 06/05/18 06:31 06/05/18 06:31 Labs: Short CBC 06/05/18 Range/Units 06:31 WBC 4.4 (4.3-11.1) K/mcL Hgb 11.8 L (12.9-16.9) g/dL Hct 36.9 L (37.5-50.1) % Plt Count 157 (140-400) K/mcL Neutrophils # 2.5 (1.6-8.9) K/mcL BMP 06/05/18 06:31 Sodium 136 Potassium 4.2 Chloride 110 H Carbon Dioxide 15 L BUN 15 Creatinine 0.49 L Glucose 95 Calcium 8.7 Consult Discharge Plan - Plan Referrals: Lois Yun CNP [Primary Care Provider] - Palliative Quality Palliative Quality: Screen for Code Status: Yes, Screen for Goals of Care: Yes, Screen for Pain: Yes, If Pain Regimen Started, Initiate Bowel Regimen: Yes, Screen for Nausea/Vomitting: Yes Code Status: 06/04/18 01:59 Resuscitation Status: Active [RES] Routine Comment: Resuscitation Status: Full Code
--- NOTE | 2018-06-05 10:50 | Oncology Inp Progress Note ---
<Kendra Tee L - Last Filed: 06/05/18 17:25> Date of Encounter: 06/05/18 Time of Encounter: 10:15 (1) Colon cancer Current Visit: Yes Status: Chronic Assessment and plan: Recurrent colon adenocarcinoma stage IV with peritoneal carcinamatosis, no distant metastatic disease in liver or chest. Current treatment includes Palliative chemotherapy with Xeloda (2 weeks on, 1 week off with start of chemotherapy cycle), Oxaliplatin, panitumumab Q3W. Last Treatment: 05/08/18 Patient was planned to follow up after restaging scans. CT Chest/Abdomen/Pelvis 05/15/18 revealed new evidence of peritoneal implants throughout the abdomen pelvis, with a small amount of ascites, enlarging soft tissue along the anterior abdominal wall, an enlarging area of soft tissue within the incision site and dilation of small bowel concerning for ileus or early obstruction. CT abdomen from [facility] per admission report reveals: High-grade small bowel obstruction secondary to known colonic mass. Chronic pancreatitis. Peritoneal carcinomatosis. CEA 10.6 on 05/08/18 Plan: He appears to have radiographic and biochemical progression of his cancer. Treatment change is to be considered dependant upon his recovery from SBO which is being treated supportively, surgical intervention is not recommended per surgical team Recommend continued supportive measures and monitoring for improvement/return of bowl function He has had 2 bowel movements this morning, however, increased pain throughout night-palliative care has transitioned to fentanyl patch Palliative care consult reviewed and following goals of care discussion he is interested in continuing to pursue treatment options in future once acute issues resolve, appreciate recommendations Qualifiers: Colon location: unspecified part of colon Qualified Code(s): C18.9 - Malignant neoplasm of colon, unspecified (2) Small bowel obstruction Current Visit: Yes Status: Acute Assessment and plan: CT abdomen/pelvis from [facility] per admission report reveals: High-grade small bowel obstruction secondary to known colonic mass. Surgery has been consulted, recommendations reviewed and appreciated. Plan at this time includes supportive measures with bowel rest, NG LIWS, supportive care He had 2 bowel movements this morning, continues to have pain/nausea Oncology: Subj Interval history: Mr. Jansen was seen and examined at bedside. He states he had a bit of a rough night in the beginning with increased abdominal pain, this did subside with pain medication and he was able to sleep by senior infrastructure architect. He reports some nausea. He had 2 bowel movement with morning, which were loose, patient states this is typical for him since his colectomy. He had abdominal pain following his BM which was relieved by pain medication. He has been up in the room to use the bathroom. He denies vomiting, chest pain, SOB, headache, fever or chills. He continues to be NPO with NG to LIWS - Constitutional Vitals: Vital Signs Temp Pulse Resp BP Pulse Ox 06/05/18 07:04 98.2 F 100 18 135/86 97 06/05/18 05:01 97.4 F L 100 17 141/91 97 06/04/18 23:42 97.5 F L 103 16 153/96 97 06/04/18 21:38 63 145/95 06/04/18 19:37 97.8 F 104 17 166/90 96 06/04/18 14:50 98.1 F 95 14 120/82 97 Intake and Output 06/04/18 06/05/18 06/05/18 23:59 07:59 15:59 Intake Total 350 / 350 0 / 0 Output Total 0 / 0 100 / 100 Balance 350 / 350 -100 / -100 0 / 0 Intake: IV Fluids 350 / 350 KCl 40mEq in 0.9% Sodium 350 / 350 Chloride 40 meq In 1,000 ml @ 100 mls/hr IVC .Q10H [facility] Rx#: [id number] Oral 0 / 0 Output: Urine 100 / 100 Gastric Drainage 0 / 0 Left Nare 0 / 0 Other: Meal NPO Percent of Meal Consumed 0% Weight 105.6 kg Blood Glucose* 83 90 General appearance: cooperative, no acute distress, no febrile - Head Head exam: Present: atraumatic - ENT ENT exam: Present: mucous membranes moist - Respiratory Respiratory exam: Present: CTAB. Absent: respiratory distress - Cardiovascular Cardiovascular exam: Present: RRR, +S1, +S2 - GI/Abdominal GI/Abdominal exam: Present: normal bowel sounds, soft, tenderness. Absent: distended, rebound Additional comments: mild diffuse tenderness with palpation - Extremities Exam Extremities exam: Present: pedal edema. Absent: calf tenderness - Neurological Exam Neurological exam: Present: alert, oriented X3, no focal deficits, strengths equal and symetr throughout - Psychiatric Psychiatric exam: Present: normal affect, normal mood - Skin Skin exam: Present: dry, intact, normal color, warm Oncology: Obj Data - Labs CBC & Chem 7: 06/05/18 06:31 06/05/18 06:31 Consult Discharge Plan - Plan Referrals: Lois Yun, SERGEY [Primary Care Provider] - <Shaheen Lyle - Last Filed: 06/05/18 19:38> Date of Encounter: 06/05/18 - Constitutional Vitals: Vital Signs Temp Pulse Resp BP Pulse Ox 06/05/18 15:14 98.2 F 95 17 152/93 98 06/05/18 11:49 97.1 F L 110 18 132/84 94 06/05/18 07:04 98.2 F 100 18 135/86 97 06/05/18 05:01 97.4 F L 100 17 141/91 97 06/04/18 23:42 97.5 F L 103 16 153/96 97 06/04/18 21:38 63 145/95 06/04/18 19:37 97.8 F 104 17 166/90 96 Intake and Output 06/05/18 06/05/18 06/06/18 08:59 16:59 00:59 Intake Total 240 / 240 240 / 240 Output Total 100 / 100 100 / 100 500 / 500 Balance -100 / -100 140 / 140 -260 / -260 Intake: Oral 240 / 240 240 / 240 Output: Urine 100 / 100 100 / 100 Gastric Drainage 500 / 500 Left Nare 500 / 500 Other: Meal Lunch Dinner Percent of Meal Consumed 100% Blood Glucose* 90 116 Oncology: Obj Data - Labs CBC & Chem 7: 06/05/18 06:31 06/05/18 06:31 Labs: Laboratory Results - last 24 hr 06/04/18 06/04/18 06/05/18 11:34 23:50 06:31 WBC 4.4 RBC 4.08 L Hgb 11.8 L Hct 36.9 L MCV 90.4 MCH 28.9 MCHC 32.0 RDW 16.8 H Plt Count 157 MPV 10.7 Immature Gran % 0.7 Seg Neutrophils % 55.8 Lymphocytes % 28.6 Monocytes % 11.9 Eosinophils % 2.5 Basophils % 0.5 Neutrophils # 2.5 Lymphocytes # 1.3 Monocytes # 0.5 Eosinophils # 0.1 Basophils # 0.0 Sodium Potassium Chloride Carbon Dioxide BUN Creatinine Est GFR ( Amer) Est GFR (Non-Af Amer) BUN/Creatinine Ratio Glucose POC Glucose 97 83 Calculated Osmolality Calcium Magnesium 06/05/18 06/05/18 06/05/18 06:31 07:33 12:41 WBC RBC Hgb Hct MCV MCH MCHC RDW Plt Count MPV Immature Gran % Seg Neutrophils % Lymphocytes % Monocytes % Eosinophils % Basophils % Neutrophils # Lymphocytes # Monocytes # Eosinophils # Basophils # Sodium 136 Potassium 4.2 Chloride 110 H Carbon Dioxide 15 L BUN 15 Creatinine 0.49 L Est GFR ( Amer) > 60 Est GFR (Non-Af Amer) > 60 BUN/Creatinine Ratio 31 H Glucose 95 POC Glucose 90 91 Calculated Osmolality 283 Calcium 8.7 Magnesium 1.4 L 06/05/18 16:41 WBC RBC Hgb Hct MCV MCH MCHC RDW Plt Count MPV Immature Gran % Seg Neutrophils % Lymphocytes % Monocytes % Eosinophils % Basophils % Neutrophils # Lymphocytes # Monocytes # Eosinophils # Basophils # Sodium Potassium Chloride Carbon Dioxide BUN Creatinine Est GFR ( Amer) Est GFR (Non-Af Amer) BUN/Creatinine Ratio Glucose POC Glucose 116 H Calculated Osmolality Calcium Magnesium - Attending Attestation I examined this patient and my medical decision-making was reviewed with the Advanced Practice Nurse. I agree with the documented findings, disposition and treatment plan as described except to the extent set forth below. Clinically, he has made baby steps in the right direction. He did drink some broth earlier today but this did upset his stomach. He is been placed back on NG suction. He passed colitis as well as some stool today. Abdominal pain is improved. His case was reviewed at tumor conference this morning. Surgical bypass is not appear to be a viable option given the abdominal wall recurrence and prior surgical history. We will continue with supportive measures for the time being. We will continue to follow.
--- NOTE | 2018-06-05 11:05 | General Surgery Progress Note ---
<Tifafni Self Ganesh - Last Filed: 06/05/18 11:02> Date of Encounter: 06/05/18 Time of Encounter: 10:45 - Assessment and Plan (1) Small bowel obstruction, partial Current Visit: Yes Status: Resolved Patient advanced to clear liquids per the hospitalist Removal of NG per patient request- he understands that we will need to replace if he develops nausea/vomiting IV fluids- per hospitalist Serial abdominal exams Supportive care Ambulate hallways TID with assistance Surgery will continue to follow and assess progress (2) Colon cancer Current Visit: Yes Status: Acute Patient is currently following with Dr. Junior- last visit April 2018 He wishes to continue with palliative chemotherapy Palliative care team did discuss goals of care and patient wishes to proceed with treatment and remain a full code Qualifiers: Colon location: overlapping sites Qualified Code(s): C18.8 - Malignant neoplasm of overlapping sites of colon (3) DVT prophylaxis Current Visit: No Status: Acute Heparin 5,000 units SQ tid for DVT prophylaxis Ambulate hallways TID with assistance Subjective Patient reports: no new complaints, feels better, still having pain, pain is less, voiding w/o difficulty, flatus, bowel movement, afebrile Objective Vital Signs - Last 8 Hours Temp Pulse Resp BP Pulse Ox 06/05/18 07:04 98.2 F 100 18 135/86 97 06/05/18 05:01 97.4 F L 100 17 141/91 97 Intake and Output 06/04/18 06/05/18 06/05/18 23:59 07:59 15:59 Intake Total 350 / 350 0 / 0 Output Total 0 / 0 100 / 100 Balance 350 / 350 -100 / -100 0 / 0 Intake: IV Fluids 350 / 350 KCl 40mEq in 0.9% Sodium 350 / 350 Chloride 40 meq In 1,000 ml @ 100 mls/hr IVC .Q10H [facility] Rx#: [id number] Oral 0 / 0 Output: Urine 100 / 100 Gastric Drainage 0 / 0 Left Nare 0 / 0 Other: Meal NPO Percent of Meal Consumed 0% Weight 105.6 kg Blood Glucose* 83 90 - General physical appearance well developed, well nourished, no distress - Eyes normal ocular movement - ENT normal mucosa, atraumatic, normocephalic - Neck Neck exam: trachea midline - Respiratory normal respiratory effort, clear to auscultation - Cardiovascular Cardiovascular exam: Present: tachycardia - Abdomen Abdomen: Present: bowel sounds present (hypoactive), soft, tender (minimal and improving), wound (NG tube to LIWS with scant amount of clear drainage noted) Abdominal Tenderness: suprapubic - Neurologic CN 2-12 grossly intact - Musculoskeletal normal gait, normal posture - Psychiatric oriented to time, oriented to person, oriented to place, speech is normal, memory intact - Labs 06/05/18 06:31 06/05/18 06:31 Diabetes panel 06/05/18 Range/Units 06:31 Sodium 136 (136-145) mEq/L Potassium 4.2 (3.5-5.1) mEq/L Chloride 110 H (98-107) mEq/L Carbon Dioxide 15 L (23-29) mEq/L BUN 15 (6-20) mg/dL Creatinine 0.49 L (0.70-1.30) mg/dL Glucose 95 (70-105) mg/dL Calcium 8.7 (8.6-10.3) mg/dL Calcium panel 06/05/18 Range/Units 06:31 Calcium 8.7 (8.6-10.3) mg/dL Pituitary panel 06/05/18 Range/Units 06:31 Sodium 136 (136-145) mEq/L Potassium 4.2 (3.5-5.1) mEq/L Chloride 110 H (98-107) mEq/L Carbon Dioxide 15 L (23-29) mEq/L BUN 15 (6-20) mg/dL Creatinine 0.49 L (0.70-1.30) mg/dL Glucose 95 (70-105) mg/dL Calcium 8.7 (8.6-10.3) mg/dL Adrenal panel 06/05/18 Range/Units 06:31 Sodium 136 (136-145) mEq/L Potassium 4.2 (3.5-5.1) mEq/L Chloride 110 H (98-107) mEq/L Carbon Dioxide 15 L (23-29) mEq/L BUN 15 (6-20) mg/dL Creatinine 0.49 L (0.70-1.30) mg/dL Glucose 95 (70-105) mg/dL Calcium 8.7 (8.6-10.3) mg/dL Consult Discharge Plan - Plan Referrals: Lois Yun CNP [Primary Care Provider] - - Attending Attestation For this encounter, I have reviewed the ELEVATOR INSTALLER APPRENTICE or PA documentation, treatment plan, and medical decision making; and I have had face to face time with this patient. <Davion Barker - Last Filed: 06/05/18 16:08> Date of Encounter: 06/05/18 - Assessment and Plan (1) Colon cancer Current Visit: Yes Status: Chronic Qualifiers: Colon location: unspecified part of colon Qualified Code(s): C18.9 - Malignant neoplasm of colon, unspecified (2) Abnormal CT of the abdomen Current Visit: No Status: Acute Objective Vital Signs - Last 8 Hours Temp Pulse Resp BP Pulse Ox 06/05/18 15:14 98.2 F 95 17 152/93 98 06/05/18 11:49 97.1 F L 110 18 132/84 94 Intake and Output 06/05/18 06/05/18 06/05/18 07:59 15:59 23:59 Intake Total 240 / 240 Output Total 100 / 100 100 / 100 Balance -100 / -100 140 / 140 Intake: Oral 240 / 240 Output: Urine 100 / 100 100 / 100 Other: Meal Lunch Percent of Meal Consumed 100% Blood Glucose* 90 91 - Labs 06/05/18 06:31 06/05/18 06:31 Diabetes panel 06/05/18 Range/Units 06:31 Sodium 136 (136-145) mEq/L Potassium 4.2 (3.5-5.1) mEq/L Chloride 110 H (98-107) mEq/L Carbon Dioxide 15 L (23-29) mEq/L BUN 15 (6-20) mg/dL Creatinine 0.49 L (0.70-1.30) mg/dL Glucose 95 (70-105) mg/dL Calcium 8.7 (8.6-10.3) mg/dL Calcium panel 06/05/18 Range/Units 06:31 Calcium 8.7 (8.6-10.3) mg/dL Pituitary panel 06/05/18 Range/Units 06:31 Sodium 136 (136-145) mEq/L Potassium 4.2 (3.5-5.1) mEq/L Chloride 110 H (98-107) mEq/L Carbon Dioxide 15 L (23-29) mEq/L BUN 15 (6-20) mg/dL Creatinine 0.49 L (0.70-1.30) mg/dL Glucose 95 (70-105) mg/dL Calcium 8.7 (8.6-10.3) mg/dL Adrenal panel 06/05/18 Range/Units 06:31 Sodium 136 (136-145) mEq/L Potassium 4.2 (3.5-5.1) mEq/L Chloride 110 H (98-107) mEq/L Carbon Dioxide 15 L (23-29) mEq/L BUN 15 (6-20) mg/dL Creatinine 0.49 L (0.70-1.30) mg/dL Glucose 95 (70-105) mg/dL Calcium 8.7 (8.6-10.3) mg/dL - Attending Attestation I have personally seen and examined the patient. I have reviewed pertinent labs , imaging, progress notes, including this one. I agree with the above assessment and plan and wish to include the following... gaining return of bowel function discussed at tumor board: do not believe surgically there is any procedure of value that I can offer than can realistically help patient; recommend palliation consult and/or evaluation by his surgeons at [facility] surgery will sign off;
[2018-06-05] MEDS ORDERED: *HR* FentaNYL PATCH 25 MCG PATCH TD SCH (11:30)
--- NOTE | 2018-06-05 14:42 | Internal Med Progress Note ---
Hospitalist Progress Note - Encounter Date of Encounter: 06/05/18 Time of Encounter: 10:30 - Subjective Interval History: Reports feeling better today. Improved nausea and abdominal pain and distention. Had bowel movements today. - Exam Vitals: Temp Pulse Resp BP Pulse Ox 97.1 F L 110 18 132/84 94 06/05/18 11:49 06/05/18 11:49 06/05/18 11:49 06/05/18 11:49 06/05/18 11:49 Exam: General: Well-developed male lying comfortably in bed in no acute distress Chest: Normal thoracic expansion. Normal breath sounds. Clear to auscultation. Heart: Normal S1 & S2; rhythmic. No rubs or murmurs. Abdomen: Non-distended, soft and nontender; hyperactive bowel sounds+ Extremities: No clubbing, cyanosis or edema. No calf tenderness. Normal distal pulses. Neurological: Awake, alert and oriented to person, place and time. No focal deficits. - Assessment and Plan (1) Small bowel obstruction Current Visit: Yes Status: Acute Assessment and Plan: CT abdomen/pelvis done in the emergency room showed possible developing small bowel obstruction, worsening soft tissue swelling in the anterior abdominal wall with invasion of the left rectus abdominis muscle, concerning for metastatic disease. Surgery on board. Poor surgical candidate. Patient improved clinically. Discontinue NG tube and start clear liquid diet today. Pain control, when necessary antiemetics. PO PPI. Monitor and replete electrolytes-noted to have hypokalemia that resolved, hypomagnesemia, to supplement with IV and by mouth magnesium. (2) CAD (coronary artery disease) Current Visit: Yes Status: Chronic Assessment and Plan: Resume home medications-aspirin, Brilinta, beta christian and statin. (3) Diabetes Current Visit: Yes Status: Acute Assessment and Plan: Blood sugars noted to be low normal. Continue to hold long-acting insulin. Accu-Chek blood glucose monitoring with sliding scale insulin as needed. (4) Hypertension Current Visit: Yes Status: Chronic Assessment and Plan: Blood pressure noted to be well controlled. Resume home medications. (5) Hyperlipidemia Current Visit: Yes Status: Chronic (6) Colon cancer Current Visit: Yes Status: Chronic Assessment and Plan: Recurrent colon adenocarcinoma with peritoneal carcinamatosis, no distant metastatic disease in liver or chest. 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 Oncology consult appreciated, possible change in chemotherapy regimen as outpatient. Agree with current conservative management and supportive measures. Palliative care has been consulted. (7) DVT prophylaxis Current Visit: Yes Status: Acute Assessment and Plan: On subcutaneous heparin (8) Tobacco abuse Current Visit: Yes Status: Chronic (9) Anxiety and depression Current Visit: Yes Status: Chronic - Time Spent with Patient Total time spent is greater than 50% in coordination of care (as documented) at patient's floor/unit and/or counseling patient: Plan of Care Discussed with: patient Internal Medicine: Result - Labs CBC & Chem 7: 06/05/18 06:31 06/05/18 06:31 Labs: Short CBC 06/05/18 Range/Units 06:31 WBC 4.4 (4.3-11.1) K/mcL Hgb 11.8 L (12.9-16.9) g/dL Hct 36.9 L (37.5-50.1) % Plt Count 157 (140-400) K/mcL Neutrophils # 2.5 (1.6-8.9) K/mcL BMP 06/05/18 06:31 Sodium 136 Potassium 4.2 Chloride 110 H Carbon Dioxide 15 L BUN 15 Creatinine 0.49 L Glucose 95 Calcium 8.7 Consult Discharge Plan - Plan Referrals: Lois Yun, WORKERS COMPENSATION ADMINISTRATOR [Primary Care Provider] - (2) CAD (coronary artery disease) Qualifiers: Coronary Disease-Associated Artery/Lesion type: [place] artery [place] vs. 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
[2018-06-05] MEDS: Doxycycline 100 MG CAPSULE PO SCH (18:27)
[2018-06-05] MEDS ORDERED: Hydrocortisone 1% OINT 28 GM TUBE TP SCH (21:00)
[2018-06-05] MEDS: Magnesium Oxide 400 MG TABLET PO SCH (21:04)
[2018-06-05] MEDS: *HR* Ticagrelor 90 MG TABLET PO SCH (21:05)
[2018-06-05] MEDS: Nicotine 21 MG PATCH.TD24 TD SCH (21:05)
[2018-06-05] MEDS: Hydrocortisone 1% OINT 28 GM TUBE TP SCH (21:06)
[2018-06-06 03:57] LABS: Basophils % 0.4 %; Eosinophils # 0.2 K/mcL (0.0-0.6); Eosinophils % 2.9 %; Hematocrit 35.3 % (37.5-50.1); Hemoglobin 11.7 g/dL (12.9-16.9); Immature Granulocytes % 0.5 % (0-4); Lymphocytes # 1.1 K/mcL (0.6-4.6); Lymphocytes % 19.5 %; Mean Corpuscular HGB Conc 33.1 g/dL (31.6-35.5); Mean Corpuscular Hemoglobin 29.1 pg (28.0-33.3); Mean Corpuscular Volume 87.8 fL (83.0-100.0); Mean Platelet Volume 10.1 fL (9.4-12.4); Monocytes # 0.7 K/mcL (0.0-1.3); Monocytes % 13.1 %; Neutrophils # 3.5 K/mcL (1.6-8.9); Platelet Count 184 K/mcL (140-400); Red Blood Count 4.02 M/mcL (4.19-5.50); Red Cell Distribution Width 16.6 % (11.5-14.5); Segmented Neutrophils % 63.6 %
[2018-06-06 04:14] LABS: BUN/Creatinine Ratio 27 (6-26); Blood Urea Nitrogen 13 mg/dL (6-20); Calcium 8.7 mg/dL (8.6-10.3); Carbon Dioxide 19 mEq/L (23-29); Chloride 104 mEq/L (98-107); Glucose 122 mg/dL (70-105); Magnesium 1.4 mg/dL (1.6-2.6); Osmolality,Calculated 277 (280-300); Potassium 3.9 mEq/L (3.5-5.1); Sodium 133 mEq/L (136-145); eGFR For Non-African Americans > 60 (> 60)
[2018-06-06] MEDS: *HR* Heparin 5,000 UNIT/ML VIAL SQ SCH ×3 (06:07→20:43)
[2018-06-06] MEDS: Doxycycline 100 MG CAPSULE PO SCH ×2 (06:07→18:16)
[2018-06-06] MEDS: Magnesium Oxide 400 MG TABLET PO SCH ×2 (08:09→20:42)
[2018-06-06] MEDS: Aspirin Enteric Coated 81 MG Tablet PO SCH (08:09)
[2018-06-06] MEDS: Fenofibrate 54 MG TABLET PO SCH (08:09)
[2018-06-06] MEDS: Ondansetron 4 MG/2 ML VIAL IVP PRN (08:09)
[2018-06-06] MEDS: *HR* Ticagrelor 90 MG TABLET PO SCH ×2 (08:09→20:41)
[2018-06-06] MEDS: Insulin LISPRO 300 UNITS/3 ML VIAL SQ SCH ×4 (09:49→21:01)
[2018-06-06] MEDS: Hydrocortisone 1% OINT 28 GM TUBE TP SCH ×2 (09:50→20:43)
[2018-06-06] MEDS: CLINDAMYCIN PHOSPHATE TP SCH ×2 (09:51)
--- NOTE | 2018-06-06 11:27 | Oncology Inp Progress Note ---
Date of Encounter: 06/06/18 Time of Encounter: 10:30 (1) Colon cancer Current Visit: Yes Status: Chronic Assessment and plan: Progressive disease noted on most recent CT scan. We will need to transition to second line chemotherapy upon recovery from his acute issues. This is been discussed his primary oncologist. Qualifiers: Colon location: unspecified part of colon Qualified Code(s): C18.9 - Malignant neoplasm of colon, unspecified (2) Small bowel obstruction Current Visit: Yes Status: Acute Assessment and plan: Clinically, he appears to be improving. NG tube has been removed. He did have issue with eating clear liquids today with associated abdominal pain. Recommend he slow down oral intake for the time being. Bowel sounds have improved from yesterday. Continue supportive measures. Fentanyl started for pain by pain and palliative. Could consider Bentyl if cramping worsen. Appreciate surgical assistance. Oncology: Subj Interval history: G-tube removed last night. He did eat some clear liquids today. This caused a pressure like sensation in his abdomen. Minimal nausea. No emesis. He has not moved his bowels since yesterday morning. No other new aches or pains. No fever, chills or symptoms of infection. - Constitutional Vitals: Vital Signs Temp Pulse Resp BP Pulse Ox 06/06/18 10:53 98.4 F 94 17 134/90 96 06/06/18 07:30 98.2 F 102 17 137/83 97 06/06/18 04:32 98.5 F 96 14 148/98 96 06/05/18 23:13 98.3 F 91 14 139/90 96 06/05/18 21:16 96 06/05/18 19:54 98.4 F 100 14 143/84 96 06/05/18 15:14 98.2 F 95 17 152/93 98 06/05/18 11:49 97.1 F L 110 18 132/84 94 Intake and Output 06/06/18 06/06/18 06/06/18 00:59 08:59 16:59 Intake Total 440 / 440 360 / 360 Output Total 500 / 500 Balance -60 / -60 360 / 360 Intake: Oral 440 / 440 360 / 360 Output: Urine 0 / 0 Gastric Drainage 500 / 500 Left Nare 500 / 500 Other: Meal Dinner Breakfast Percent of Meal Consumed 100% # Voids 1 # Bowel Movements 0 0 Weight 105.5 kg Blood Glucose* 112 118 General appearance: average body habitus, cooperative, no acute distress - Head Head exam: Present: atraumatic, normal inspection, normocephalic - Eye Eye exam: Present: normal appearance, conjuntiva pink - ENT ENT exam: Present: mucous membranes moist, normal oropharynx - Neck Neck exam: Present: full ROM, normal inspection - Respiratory Respiratory exam: Present: CTAB - Cardiovascular Cardiovascular exam: Present: RRR - GI/Abdominal GI/Abdominal exam: Present: hyperactive bowel sounds, tenderness - Extremities Exam Extremities exam: Present: normal inspection - Neurological Exam Neurological exam: Present: alert, CN II-XII intact, normal gait, oriented X3, no focal deficits - Skin Skin exam: Present: normal color Oncology: Obj Data - Labs CBC & Chem 7: 06/06/18 03:43 06/06/18 03:43 Labs: Laboratory Results - last 24 hr 06/04/18 06/04/18 06/05/18 11:34 23:50 12:41 WBC RBC Hgb Hct MCV MCH MCHC RDW Plt Count MPV Immature Gran % Seg Neutrophils % Lymphocytes % Monocytes % Eosinophils % Basophils % Neutrophils # Lymphocytes # Monocytes # Eosinophils # Basophils # Sodium Potassium Chloride Carbon Dioxide BUN Creatinine Est GFR ( Amer) Est GFR (Non-Af Amer) BUN/Creatinine Ratio Glucose POC Glucose 97 83 91 Calculated Osmolality Calcium Magnesium 06/05/18 06/06/18 06/06/18 16:41 03:43 03:43 WBC 5.5 RBC 4.02 L Hgb 11.7 L Hct 35.3 L MCV 87.8 MCH 29.1 MCHC 33.1 RDW 16.6 H Plt Count 184 MPV 10.1 Immature Gran % 0.5 Seg Neutrophils % 63.6 Lymphocytes % 19.5 Monocytes % 13.1 Eosinophils % 2.9 Basophils % 0.4 Neutrophils # 3.5 Lymphocytes # 1.1 Monocytes # 0.7 Eosinophils # 0.2 Basophils # 0.0 Sodium 133 L Potassium 3.9 Chloride 104 Carbon Dioxide 19 L BUN 13 Creatinine 0.48 L Est GFR ( Amer) > 60 Est GFR (Non-Af Amer) > 60 BUN/Creatinine Ratio 27 H Glucose 122 H POC Glucose 116 H Calculated Osmolality 277 L Calcium 8.7 Magnesium 1.4 L Consult Discharge Plan - Plan Referrals: Lois Yun, SERGEY [Primary Care Provider] -
--- NOTE | 2018-06-06 12:38 | General Surgery Progress Note ---
<Lauren Murray E - Last Filed: 06/06/18 14:32> Date of Encounter: 06/06/18 Time of Encounter: 12:36 - Assessment and Plan (1) DVT prophylaxis Current Visit: Yes Status: Acute Heparin 5000 units SQ tid for DVT prophylaxis Ambulate hallways TID with Assistance (2) Colon cancer Current Visit: Yes Status: Chronic Continuation of palliative chemotherapy Discussion of possible venting gtube if needed later if small bowel obstructions continue to be a problem Qualifiers: Colon location: unspecified part of colon Qualified Code(s): C18.9 - Malignant neoplasm of colon, unspecified (3) Small bowel obstruction, partial Current Visit: Yes Status: Resolved Continue clear liquids NG still out today, patient knows if nausea and vomiting return he will need it replaced IV fluids- per hospitalist Serial abdominal exams Supportive care Ambulate hallways TID with assistance Surgery will continue to follow and assess progress Subjective Patient reports: feels better, tolerating liquids well, flatus, bowel movement Objective Vital Signs - Last 8 Hours Temp Pulse Resp BP Pulse Ox 06/06/18 10:53 98.4 F 94 17 134/90 96 06/06/18 07:30 98.2 F 102 17 137/83 97 Intake and Output 06/05/18 06/06/18 06/06/18 23:59 07:59 15:59 Intake Total 440 / 440 360 / 360 Output Total 500 / 500 Balance -60 / -60 360 / 360 Intake: Oral 440 / 440 360 / 360 Output: Urine 0 / 0 Gastric Drainage 500 / 500 Left Nare 500 / 500 Other: Meal Dinner Breakfast Percent of Meal Consumed 100% # Voids 1 # Bowel Movements 0 0 Weight 105.5 kg Blood Glucose* 112 118 - General physical appearance well developed, well nourished, chronically ill - Cardiovascular Cardiovascular exam: Present: RRR, no murmurs/rubs/gallops - Abdomen Abdomen: Present: bowel sounds present, soft, non tender - Integumentary no rash, no growths, no abnormal pigmentation - Musculoskeletal normal posture - Psychiatric oriented to time, oriented to person, oriented to place - Labs 06/06/18 03:43 06/06/18 03:43 Diabetes panel 06/06/18 Range/Units 03:43 Sodium 133 L (136-145) mEq/L Potassium 3.9 (3.5-5.1) mEq/L Chloride 104 (98-107) mEq/L Carbon Dioxide 19 L (23-29) mEq/L BUN 13 (6-20) mg/dL Creatinine 0.48 L (0.70-1.30) mg/dL Glucose 122 H (70-105) mg/dL Calcium 8.7 (8.6-10.3) mg/dL Calcium panel 06/06/18 Range/Units 03:43 Calcium 8.7 (8.6-10.3) mg/dL Pituitary panel 06/06/18 Range/Units 03:43 Sodium 133 L (136-145) mEq/L Potassium 3.9 (3.5-5.1) mEq/L Chloride 104 (98-107) mEq/L Carbon Dioxide 19 L (23-29) mEq/L BUN 13 (6-20) mg/dL Creatinine 0.48 L (0.70-1.30) mg/dL Glucose 122 H (70-105) mg/dL Calcium 8.7 (8.6-10.3) mg/dL Adrenal panel 06/06/18 Range/Units 03:43 Sodium 133 L (136-145) mEq/L Potassium 3.9 (3.5-5.1) mEq/L Chloride 104 (98-107) mEq/L Carbon Dioxide 19 L (23-29) mEq/L BUN 13 (6-20) mg/dL Creatinine 0.48 L (0.70-1.30) mg/dL Glucose 122 H (70-105) mg/dL Calcium 8.7 (8.6-10.3) mg/dL Consult Discharge Plan - Plan Referrals: Lois Yun, SLUG PRESS OPERATOR [Primary Care Provider] - <Eleanor Barlow - Last Filed: 06/06/18 14:49> Date of Encounter: 06/06/18 - Assessment and Plan (1) Cancer associated pain Current Visit: Yes Status: Acute (2) Small bowel obstruction Current Visit: Yes Status: Acute SBO secondary likely carcinomatosis, is passing some flatus yesterday, not much toda will continue sips clears serial abdominal exams discussed with patient that if he does not open up I do not consider him a surgical candidate given his cancer burden but we did discuss palliative peg for decompression continue monitor Subjective Patient reports: feels better, still having pain, pain is less, tolerating liquids well, flatus, bowel movement Objective Vital Signs - Last 8 Hours Temp Pulse Resp BP Pulse Ox 06/06/18 10:53 98.4 F 94 17 134/90 96 06/06/18 07:30 98.2 F 102 17 137/83 97 Intake and Output 06/05/18 06/06/18 06/06/18 23:59 07:59 15:59 Intake Total 440 / 440 720 / 720 Output Total 500 / 500 Balance -60 / -60 720 / 720 Intake: Oral 440 / 440 720 / 720 Output: Urine 0 / 0 Gastric Drainage 500 / 500 Left Nare 500 / 500 Other: Meal Dinner Clear Percent of Meal Consumed 0% # Voids 1 # Bowel Movements 0 0 Weight 105.5 kg Blood Glucose* 112 118 - General physical appearance well developed, well nourished, no distress - Eyes PERRL, normal ocular movement - ENT normal mucosa, normocephalic - Neck Neck exam: trachea midline - Cardiovascular Cardiovascular exam: Present: RRR, no murmurs/rubs/gallops - Abdomen Abdomen: Present: bowel sounds present, soft, tender (mildly, diffusely) - Integumentary no rash, no growths, no abnormal pigmentation - Neurologic normal sensation - Musculoskeletal normal posture - Psychiatric oriented to time, oriented to person, oriented to place, memory intact - Labs 06/06/18 03:43 06/06/18 03:43 Diabetes panel 06/06/18 Range/Units 03:43 Sodium 133 L (136-145) mEq/L Potassium 3.9 (3.5-5.1) mEq/L Chloride 104 (98-107) mEq/L Carbon Dioxide 19 L (23-29) mEq/L BUN 13 (6-20) mg/dL Creatinine 0.48 L (0.70-1.30) mg/dL Glucose 122 H (70-105) mg/dL Calcium 8.7 (8.6-10.3) mg/dL Calcium panel 06/06/18 Range/Units 03:43 Calcium 8.7 (8.6-10.3) mg/dL Pituitary panel 06/06/18 Range/Units 03:43 Sodium 133 L (136-145) mEq/L Potassium 3.9 (3.5-5.1) mEq/L Chloride 104 (98-107) mEq/L Carbon Dioxide 19 L (23-29) mEq/L BUN 13 (6-20) mg/dL Creatinine 0.48 L (0.70-1.30) mg/dL Glucose 122 H (70-105) mg/dL Calcium 8.7 (8.6-10.3) mg/dL Adrenal panel 06/06/18 Range/Units 03:43 Sodium 133 L (136-145) mEq/L Potassium 3.9 (3.5-5.1) mEq/L Chloride 104 (98-107) mEq/L Carbon Dioxide 19 L (23-29) mEq/L BUN 13 (6-20) mg/dL Creatinine 0.48 L (0.70-1.30) mg/dL Glucose 122 H (70-105) mg/dL Calcium 8.7 (8.6-10.3) mg/dL - Attending Attestation I examined this patient and my medical decision-making was reviewed with the Resident Physician. I agree with the documented findings, disposition and treatment plan as described except to the extent set forth below.
--- NOTE | 2018-06-06 14:21 | Internal Med Progress Note ---
Hospitalist Progress Note - Encounter Date of Encounter: 06/06/18 Time of Encounter: 10:50 - Subjective Interval History: Reports abdominal pain and cramping, specially in his right lower abdomen, associated with constipation; no fever/chills, nausea/vomiting; has been on clear liquids since yesterday; - Exam Vitals: Temp Pulse Resp BP Pulse Ox 98.4 F 94 17 134/90 96 06/06/18 10:53 06/06/18 10:53 06/06/18 10:53 06/06/18 10:53 06/06/18 10:53 Exam: General: Well-developed male lying comfortably in bed in mild acute distress Chest: Normal thoracic expansion. Normal breath sounds. Clear to auscultation. Heart: Normal S1 & S2; rhythmic. No rubs or murmurs. Abdomen: Non-distended, soft and nontender; hyperactive bowel sounds+ Extremities: No clubbing, cyanosis or edema. No calf tenderness. Normal distal pulses. Neurological: Awake, alert and oriented to person, place and time. No focal deficits. - Assessment and Plan (1) Small bowel obstruction Current Visit: Yes Status: Acute Assessment and Plan: CT abdomen/pelvis done in the emergency room showed possible developing small bowel obstruction, worsening soft tissue swelling in the anterior abdominal wall with invasion of the left rectus abdominis muscle, concerning for metastatic disease. Surgery on board. Poor surgical candidate. Continue clear liquid diet while monitoring closely for worsening abdominal pain, nausea or vomiting. Pain control, when necessary antiemetics. PO PPI. Monitor and replete electrolytes- noted to have hypokalemia that resolved, hypomagnesemia, to supplement with IV and by mouth magnesium. (2) CAD (coronary artery disease) Current Visit: Yes Status: Chronic Assessment and Plan: Resume home medications-aspirin, Brilinta, beta christian and statin. (3) Diabetes Current Visit: Yes Status: Acute Assessment and Plan: Blood sugars noted to be well controlled. Continue to hold long-acting insulin. Accu-Chek blood glucose monitoring with sliding scale insulin as needed. (4) Hypertension Current Visit: Yes Status: Chronic (5) Hyperlipidemia Current Visit: Yes Status: Chronic (6) Colon cancer Current Visit: Yes Status: Chronic Assessment and Plan: Recurrent colon adenocarcinoma with peritoneal carcinamatosis, no distant metastatic disease in liver or chest. 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 Oncology consulted, possible change in chemotherapy regimen as outpatient. Agree with current conservative management and supportive measures. Palliative care has been consulted, started fentanyl transdermal patch in addition to oral oxycodone for pain control. (7) DVT prophylaxis Current Visit: Yes Status: Acute (8) Tobacco abuse Current Visit: Yes Status: Chronic (9) Anxiety and depression Current Visit: Yes Status: Chronic - Time Spent with Patient Total time spent is greater than 50% in coordination of care (as documented) at patient's floor/unit and/or counseling patient: Plan of Care Discussed with: patient Internal Medicine: Result - Labs CBC & Chem 7: 06/06/18 03:43 06/06/18 03:43 Labs: Short CBC 06/06/18 Range/Units 03:43 WBC 5.5 (4.3-11.1) K/mcL Hgb 11.7 L (12.9-16.9) g/dL Hct 35.3 L (37.5-50.1) % Plt Count 184 (140-400) K/mcL Neutrophils # 3.5 (1.6-8.9) K/mcL BMP 06/06/18 03:43 Sodium 133 L Potassium 3.9 Chloride 104 Carbon Dioxide 19 L BUN 13 Creatinine 0.48 L Glucose 122 H Calcium 8.7 Consult Discharge Plan - Plan Referrals: Lois Yun, ADMINISTRATIVE SECRETARY [Primary Care Provider] - (2) CAD (coronary artery disease) Qualifiers: Coronary Disease-Associated Artery/Lesion type: [place] artery [place] vs. 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
[2018-06-06] MEDS ORDERED: Acetaminophen 325 MG TABLET PO PRN (20:55)
[2018-06-06] MEDS: Nicotine 21 MG PATCH.TD24 TD SCH (21:00)
[2018-06-07 04:12] LABS: Basophils % 0.4 %; Eosinophils # 0.1 K/mcL (0.0-0.6); Eosinophils % 2.4 %; Hematocrit 38.3 % (37.5-50.1); Hemoglobin 12.6 g/dL (12.9-16.9); Immature Granulocytes % 0.7 % (0-4); Lymphocytes # 1.1 K/mcL (0.6-4.6); Lymphocytes % 20.7 %; Mean Corpuscular HGB Conc 32.9 g/dL (31.6-35.5); Mean Corpuscular Volume 88.2 fL (83.0-100.0); Monocytes # 0.8 K/mcL (0.0-1.3); Neutrophils # 3.3 K/mcL (1.6-8.9); Platelet Count 192 K/mcL (140-400); Red Blood Count 4.34 M/mcL (4.19-5.50); Red Cell Distribution Width 16.5 % (11.5-14.5); Segmented Neutrophils % 60.8 %
[2018-06-07 04:33] LABS: BUN/Creatinine Ratio 20 (6-26); Blood Urea Nitrogen 10 mg/dL (6-20); Calcium 9.2 mg/dL (8.6-10.3); Carbon Dioxide 22 mEq/L (23-29); Chloride 104 mEq/L (98-107); Glucose 128 mg/dL (70-105); Osmolality,Calculated 285 (280-300); Potassium 3.9 mEq/L (3.5-5.1); Sodium 137 mEq/L (136-145); eGFR For Non-African Americans > 60 (> 60)
[2018-06-07] MEDS: *HR* Heparin 5,000 UNIT/ML VIAL SQ SCH ×3 (06:03→21:14)
[2018-06-07] MEDS: Doxycycline 100 MG CAPSULE PO SCH ×2 (06:03→18:19)
--- NOTE | 2018-06-07 08:24 | General Surgery Progress Note ---
<Lauren Murray E - Last Filed: 06/07/18 08:21> Date of Encounter: 06/07/18 Time of Encounter: 08:22 - Assessment and Plan (1) DVT prophylaxis Current Visit: Yes Status: Acute Heparin 5000 units SQ tid for DVT prophylaxis Ambulate hallways TID with Assistance (2) Colon cancer Current Visit: Yes Status: Chronic Continuation of palliative chemotherapy Discussion of possible venting gtube if needed later if small bowel obstructions continue to be a problem Qualifiers: Colon location: unspecified part of colon Qualified Code(s): C18.9 - Malignant neoplasm of colon, unspecified (3) Small bowel obstruction, partial Current Visit: Yes Status: Resolved Continue clear liquids IV fluids- per hospitalist Serial abdominal exams Supportive care Ambulate hallways TID with assistance Surgery will continue to follow and assess progress Subjective Patient reports: feels better, flatus, bowel movement Objective Vital Signs - Last 8 Hours Temp Pulse Resp BP Pulse Ox 06/07/18 07:42 98.8 F 112 16 135/89 96 06/07/18 03:44 98.3 F 97 15 130/86 96 Intake and Output 06/06/18 06/07/18 06/07/18 23:59 07:59 15:59 Intake Total 830 / 830 500 / 500 Output Total 150 / 150 Balance 830 / 830 350 / 350 Intake: Oral 830 / 830 500 / 500 Output: Urine 150 / 150 Other: Meal Dinner # Voids 1 # Bowel Movements 0 0 Weight 104.7 kg Blood Glucose* 117 - General physical appearance well developed, well nourished - Respiratory normal expansion, normal respiratory effort, clear to auscultation - Cardiovascular Cardiovascular exam: Present: RRR, no murmurs/rubs/gallops - Abdomen Abdomen: Present: bowel sounds present, soft, tender Abdominal Tenderness: epigastic - Musculoskeletal normal posture - Psychiatric oriented to time, oriented to person, oriented to place - Labs 06/07/18 03:55 06/07/18 03:55 Diabetes panel 06/07/18 Range/Units 03:55 Sodium 137 (136-145) mEq/L Potassium 3.9 (3.5-5.1) mEq/L Chloride 104 (98-107) mEq/L Carbon Dioxide 22 L (23-29) mEq/L BUN 10 (6-20) mg/dL Creatinine 0.49 L (0.70-1.30) mg/dL Glucose 128 H (70-105) mg/dL Calcium 9.2 (8.6-10.3) mg/dL Calcium panel 06/07/18 Range/Units 03:55 Calcium 9.2 (8.6-10.3) mg/dL Pituitary panel 06/07/18 Range/Units 03:55 Sodium 137 (136-145) mEq/L Potassium 3.9 (3.5-5.1) mEq/L Chloride 104 (98-107) mEq/L Carbon Dioxide 22 L (23-29) mEq/L BUN 10 (6-20) mg/dL Creatinine 0.49 L (0.70-1.30) mg/dL Glucose 128 H (70-105) mg/dL Calcium 9.2 (8.6-10.3) mg/dL Adrenal panel 06/07/18 Range/Units 03:55 Sodium 137 (136-145) mEq/L Potassium 3.9 (3.5-5.1) mEq/L Chloride 104 (98-107) mEq/L Carbon Dioxide 22 L (23-29) mEq/L BUN 10 (6-20) mg/dL Creatinine 0.49 L (0.70-1.30) mg/dL Glucose 128 H (70-105) mg/dL Calcium 9.2 (8.6-10.3) mg/dL Consult Discharge Plan - Plan Referrals: Lois Yun, SQUEEGEE OPERATOR [Primary Care Provider] - <Eleanor Barlow - Last Filed: 06/07/18 18:15> Date of Encounter: 06/07/18 - Assessment and Plan (1) Cancer associated pain Current Visit: Yes Status: Acute (2) Small bowel obstruction Current Visit: Yes Status: Acute appears to be slowly resolving, is tolerating clears but did get a little full after drinking soup continue wiht clears, he knows to take it easy passing flatus, + bm monitor Subjective Patient reports: feels better, tolerating liquids well, flatus, bowel movement Objective Vital Signs - Last 8 Hours Temp Pulse Resp BP Pulse Ox 06/07/18 17:06 98.4 F 97 16 122/82 97 06/07/18 11:54 98.1 F 95 20 145/95 98 Intake and Output 06/07/18 06/07/18 06/07/18 07:59 15:59 23:59 Intake Total 500 / 500 120 / 120 Output Total 150 / 150 Balance 350 / 350 120 / 120 Intake: Oral 500 / 500 120 / 120 Output: Urine 150 / 150 Other: Meal Breakfast Stool Size Small Stool Consistency soft formed Stool Color Black # Voids 3 # Bowel Movements 0 Blood Glucose* 113 141 - General physical appearance well developed, well nourished, no distress - Eyes PERRL, normal ocular movement - ENT normal mucosa, normocephalic - Neck Neck exam: trachea midline - Respiratory normal expansion, clear to auscultation - Cardiovascular Cardiovascular exam: Present: RRR - Abdomen Abdomen: Present: bowel sounds present, soft, tender (minimal). Absent: guarding, rebound - Integumentary no rash, no growths - Neurologic CN 2-12 grossly intact - Musculoskeletal normal posture - Psychiatric oriented to time, oriented to person, oriented to place, speech is normal, memory intact - Labs 06/07/18 03:55 06/07/18 03:55 Diabetes panel 06/07/18 Range/Units 03:55 Sodium 137 (136-145) mEq/L Potassium 3.9 (3.5-5.1) mEq/L Chloride 104 (98-107) mEq/L Carbon Dioxide 22 L (23-29) mEq/L BUN 10 (6-20) mg/dL Creatinine 0.49 L (0.70-1.30) mg/dL Glucose 128 H (70-105) mg/dL Calcium 9.2 (8.6-10.3) mg/dL Calcium panel 06/07/18 Range/Units 03:55 Calcium 9.2 (8.6-10.3) mg/dL Pituitary panel 06/07/18 Range/Units 03:55 Sodium 137 (136-145) mEq/L Potassium 3.9 (3.5-5.1) mEq/L Chloride 104 (98-107) mEq/L Carbon Dioxide 22 L (23-29) mEq/L BUN 10 (6-20) mg/dL Creatinine 0.49 L (0.70-1.30) mg/dL Glucose 128 H (70-105) mg/dL Calcium 9.2 (8.6-10.3) mg/dL Adrenal panel 06/07/18 Range/Units 03:55 Sodium 137 (136-145) mEq/L Potassium 3.9 (3.5-5.1) mEq/L Chloride 104 (98-107) mEq/L Carbon Dioxide 22 L (23-29) mEq/L BUN 10 (6-20) mg/dL Creatinine 0.49 L (0.70-1.30) mg/dL Glucose 128 H (70-105) mg/dL Calcium 9.2 (8.6-10.3) mg/dL - Attending Attestation I examined this patient and my medical decision-making was reviewed with the Resident Physician. I agree with the documented findings, disposition and treatment plan as described except to the extent set forth below.
[2018-06-07] MEDS: Insulin LISPRO 300 UNITS/3 ML VIAL SQ SCH ×4 (08:45→21:15)
[2018-06-07] MEDS: Magnesium Oxide 400 MG TABLET PO SCH ×3 (08:53→21:14)
[2018-06-07] MEDS: Ondansetron 4 MG/2 ML VIAL IVP PRN ×2 (08:53→21:17)
[2018-06-07] MEDS: Aspirin Enteric Coated 81 MG Tablet PO SCH (08:53)
[2018-06-07] MEDS: Fenofibrate 54 MG TABLET PO SCH (08:53)
[2018-06-07] MEDS: *HR* Ticagrelor 90 MG TABLET PO SCH ×2 (08:53→21:14)
[2018-06-07] MEDS: Hydrocortisone 1% OINT 28 GM TUBE TP SCH ×2 (09:00→21:15)
[2018-06-07] MEDS: CLINDAMYCIN PHOSPHATE TP SCH ×2 (09:00)
[2018-06-07 11:01] LABS: Magnesium 1.5 mg/dL (1.6-2.6)
--- NOTE | 2018-06-07 13:42 | Internal Med Progress Note ---
Hospitalist Progress Note - Encounter Date of Encounter: 06/07/18 Time of Encounter: 10:45 - Subjective Interval History: Reports pain and tenderness in lower abdomen, around umbilicus, fairly constant , not aggravated with food. Tolerates clear liquid diet. Intermittent nausea but no vomiting. Noted to have bowel movements this morning. - Exam Vitals: Temp Pulse Resp BP Pulse Ox 98.1 F 95 20 145/95 98 06/07/18 11:54 06/07/18 11:54 06/07/18 11:54 06/07/18 11:54 06/07/18 11:54 Exam: General: Well-developed male lying comfortably in bed, no acute distress Chest: Normal thoracic expansion. Normal breath sounds. Clear to auscultation. Heart: Normal S1 & S2; rhythmic. No rubs or murmurs. Abdomen: Non-distended, soft; normal bowel sounds+, tenderness in periumbilical area and lower abdomen, no rigidity/guarding Neurological: Awake, alert and oriented to person, place and time. No focal deficits. - Assessment and Plan (1) Small bowel obstruction Current Visit: Yes Status: Acute Assessment and Plan: CT abdomen/pelvis done in the emergency room showed possible developing small bowel obstruction, worsening soft tissue swelling in the anterior abdominal wall with invasion of the left rectus abdominis muscle, concerning for metastatic disease. Surgery on board. Poor surgical candidate. Will advance diet to FLD; Pain control, when necessary antiemetics. PO PPI. Monitor and replete electrolytes- noted to have hypokalemia that resolved, hypomagnesemia, to supplement with IV and by mouth magnesium. (2) CAD (coronary artery disease) Current Visit: Yes Status: Chronic Assessment and Plan: Resume home medications-aspirin, Brilinta, beta christian and statin. (3) Diabetes Current Visit: Yes Status: Chronic Assessment and Plan: Blood sugars noted to be well controlled. Continue to hold long-acting insulin. Accu-Chek blood glucose monitoring with sliding scale insulin as needed. (4) Hypertension Current Visit: Yes Status: Chronic (5) Hyperlipidemia Current Visit: Yes Status: Chronic (6) Colon cancer Current Visit: Yes Status: Chronic Assessment and Plan: Recurrent colon adenocarcinoma with peritoneal carcinamatosis, no distant metastatic disease in liver or chest. 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 Oncology consulted, possible change in chemotherapy regimen as outpatient. Agree with current conservative management and supportive measures. Palliative care has been consulted, continue fentanyl transdermal patch and oral oxycodone for pain control. Pain is likely related to peritoneal carcinomatosis rather than bowel obstruction itself; (7) DVT prophylaxis Current Visit: Yes Status: Acute (8) Tobacco abuse Current Visit: Yes Status: Chronic (9) Anxiety and depression Current Visit: Yes Status: Chronic - Time Spent with Patient Total time spent is greater than 50% in coordination of care (as documented) at patient's floor/unit and/or counseling patient: Plan of Care Discussed with: patient Internal Medicine: Result - Labs CBC & Chem 7: 06/07/18 03:55 06/07/18 03:55 Labs: Short CBC 06/07/18 Range/Units 03:55 WBC 5.4 (4.3-11.1) K/mcL Hgb 12.6 L (12.9-16.9) g/dL Hct 38.3 (37.5-50.1) % Plt Count 192 (140-400) K/mcL Neutrophils # 3.3 (1.6-8.9) K/mcL BMP 06/07/18 03:55 Sodium 137 Potassium 3.9 Chloride 104 Carbon Dioxide 22 L BUN 10 Creatinine 0.49 L Glucose 128 H Calcium 9.2 Consult Discharge Plan - Plan Referrals: Lois Yun, SUPPLY CHAIN BUYER [Primary Care Provider] - (2) CAD (coronary artery disease) Qualifiers: Coronary Disease-Associated Artery/Lesion type: [place] artery [place] vs. 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
[2018-06-07] MEDS: Nicotine 21 MG PATCH.TD24 TD SCH (21:13)
[2018-06-08] MEDS: *HR* Heparin 5,000 UNIT/ML VIAL SQ SCH ×2 (05:55→14:51)
[2018-06-08] MEDS: Doxycycline 100 MG CAPSULE PO SCH (05:56)
[2018-06-08] MEDS: Insulin LISPRO 300 UNITS/3 ML VIAL SQ SCH ×2 (07:54→11:32)
--- NOTE | 2018-06-08 08:24 | General Surgery Progress Note ---
Addendum entered and electronically signed by Lauren Murray 06/08/18 11 :29: Venting g-tube not advised due to high morbidity and mortality. Original Note: <Lauren Murray - Last Filed: 06/08/18 08:22> Date of Encounter: 06/08/18 Time of Encounter: 08:23 - Assessment and Plan (1) DVT prophylaxis Status: Acute Heparin 5000 units SQ tid for DVT prophylaxis Ambulate hallways TID with Assistance (2) Colon cancer Status: Chronic Continuation of palliative chemotherapy Discussion of possible venting gtube if needed later if small bowel obstructions continue to be a problem Qualifiers: Colon location: unspecified part of colon Qualified Code(s): C18.9 - Malignant neoplasm of colon, unspecified (3) Small bowel obstruction, partial Status: Resolved Continue to advance diet as tolerated IV fluids- per hospitalist Supportive care Ambulate hallways TID with assistance Surgery will sign off at this time, thank you for including us in this patient' s care, if you have any questions or concerns please feel free to contact us. Subjective Patient reports: feels better, flatus, bowel movement Objective Vital Signs - Last 8 Hours Temp Pulse Resp BP Pulse Ox 06/08/18 07:37 98.1 F 98 16 150/93 97 06/08/18 03:43 98.3 F 96 15 124/85 97 Intake and Output 06/07/18 06/08/18 06/08/18 23:59 07:59 15:59 Intake Total 0 / 0 60 / 60 Output Total 0 / 0 150 / 150 Balance 0 / 0 -90 / -90 Intake: Oral 0 / 0 60 / 60 Output: Urine 0 / 0 150 / 150 Other: # Bowel Movements 1 Weight 102.1 kg Blood Glucose* 154 140 Patient Weight 06/08/18 23:59 Weight 102.1 kg - General physical appearance well developed, no distress, chronically ill - Respiratory normal expansion, normal respiratory effort, clear to auscultation - Cardiovascular Cardiovascular exam: Present: RRR, no murmurs/rubs/gallops - Abdomen Abdomen: Present: bowel sounds present, soft, non tender - Integumentary no rash, no growths, no abnormal pigmentation - Musculoskeletal normal posture - Psychiatric oriented to time, oriented to person, oriented to place - Labs 06/07/18 03:55 06/07/18 03:55 Diabetes panel 06/07/18 Range/Units 03:55 Sodium 137 (136-145) mEq/L Potassium 3.9 (3.5-5.1) mEq/L Chloride 104 (98-107) mEq/L Carbon Dioxide 22 L (23-29) mEq/L BUN 10 (6-20) mg/dL Creatinine 0.49 L (0.70-1.30) mg/dL Glucose 128 H (70-105) mg/dL Calcium 9.2 (8.6-10.3) mg/dL Calcium panel 06/07/18 Range/Units 03:55 Calcium 9.2 (8.6-10.3) mg/dL Pituitary panel 06/07/18 Range/Units 03:55 Sodium 137 (136-145) mEq/L Potassium 3.9 (3.5-5.1) mEq/L Chloride 104 (98-107) mEq/L Carbon Dioxide 22 L (23-29) mEq/L BUN 10 (6-20) mg/dL Creatinine 0.49 L (0.70-1.30) mg/dL Glucose 128 H (70-105) mg/dL Calcium 9.2 (8.6-10.3) mg/dL Adrenal panel 06/07/18 Range/Units 03:55 Sodium 137 (136-145) mEq/L Potassium 3.9 (3.5-5.1) mEq/L Chloride 104 (98-107) mEq/L Carbon Dioxide 22 L (23-29) mEq/L BUN 10 (6-20) mg/dL Creatinine 0.49 L (0.70-1.30) mg/dL Glucose 128 H (70-105) mg/dL Calcium 9.2 (8.6-10.3) mg/dL Consult Discharge Plan - Plan Additional Instructions: F/up with PCP in 1-2 weeks F/up with Oncology as scheduled Referrals: Lois Yun CNP [Primary Care Provider] - 06/15/18 1:00 pm Milagros Roman MD [Partnered Physician] - 06/17/18 9:00 am Prescriptions: FentaNYL PATCH [Duragesic] 50 mcg TD Q72H 30 Days #10 patch.td72 Magnesium Oxide [Mag-Ox] 400 mg PO TID #90 tablet <Davion Barker - Last Filed: 06/09/18 07:59> Date of Encounter: 06/09/18 - Assessment and Plan (1) Colon cancer Status: Chronic Qualifiers: Colon location: unspecified part of colon Qualified Code(s): C18.9 - Malignant neoplasm of colon, unspecified (2) Abnormal CT of the abdomen Status: Acute Objective Intake and Output 06/08/18 06/08/18 06/09/18 15:59 23:59 07:59 Intake Total 464 / 464 Output Total 0 / 0 Balance 464 / 464 Intake: IV Fluids 104 / 104 Magnesium Sulfate 2 GM In 0.9 % 104 / 104 Sodium Chloride 100 ML @ 104 mls/hr IVPB ONCE ONE Rx#: [id number] Oral 360 / 360 Output: Urine 0 / 0 Other: Meal Lunch Percent of Meal Consumed 70% Blood Glucose* 164 - Labs 06/07/18 03:55 06/07/18 03:55 - Attending Attestation patient seen and examined. i have reviewed all labs, imaging, and notes. I agree with the above assessment and plan.
[2018-06-08] MEDS: Fenofibrate 54 MG TABLET PO SCH (08:44)
[2018-06-08] MEDS: Magnesium Oxide 400 MG TABLET PO SCH ×2 (08:44→14:51)
[2018-06-08] MEDS: *HR* Ticagrelor 90 MG TABLET PO SCH (08:45)
[2018-06-08] MEDS: Hydrocortisone 1% OINT 28 GM TUBE TP SCH (08:45)
[2018-06-08] MEDS: Aspirin Enteric Coated 81 MG Tablet PO SCH (08:45)
[2018-06-08] MEDS: CLINDAMYCIN PHOSPHATE TP SCH ×2 (08:46)
[2018-06-08] MEDS ORDERED: *HR* FentaNYL PATCH 50 MCG PATCH TD SCH (09:30)
[2018-06-08 10:57] VITALS: BP 126/89
--- NOTE | 2018-06-08 11:24 | Palliative Progress Note ---
Date of Encounter: 06/08/18 Time of Encounter: 10:00 - Assessment and plan (1) Goals of care, counseling/discussion Current Visit: No Status: Acute Assessment and plan: Patient willl F/U with Oncology as outpatient to assess treatment options once SBO fully resolved. Remains FULL CODE per his request. (2) Cancer associated pain Current Visit: Yes Status: Acute Assessment and plan: Patient with continues lower abdominal pain. 4/10, dull ache continuos. Positions for comfort and has used BTP Oxycodone as needed. Will increase fentanyl to 50 mcg. Discussed plan with patient and agrees. Goals are for senior care control using less to no BTP meds. Case discussed with Dr. Oliva. (3) Small bowel obstruction, partial Current Visit: No Status: Resolved Assessment and plan: Resolved. Surgery following. (4) Colon cancer Current Visit: Yes Status: Chronic Qualifiers: Colon location: unspecified part of colon Qualified Code(s): C18.9 - Malignant neoplasm of colon, unspecified (5) Nausea Current Visit: No Status: Acute Assessment and plan: PRN Zofran. Tolerating po. - Time Spent With Patient Total time spent is greater than 50% in coordination of care (as documented) at patient's floor/unit and/or counseling patient: 25 - 35 minutes - Subjective Interval history: Awake, tolerating liquids well. Reports having continuous dull ache to lower abdomen. Rated 4/10. Likely from cancer. Reports BMs and flatus. Denies any other complaints. - Constitutional Vitals: Abnormal lab results Hgb 12.6 g/dL (12.9-16.9) L 06/07/18 03:55 RDW 16.5 % (11.5-14.5) H 06/07/18 03:55 Carbon Dioxide 22 mEq/L (23-29) L 06/07/18 03:55 Creatinine 0.49 mg/dL (0.70-1.30) L 06/07/18 03:55 Glucose 128 mg/dL (70-105) H 06/07/18 03:55 POC Glucose 164 mg/dL (70-99) H 06/08/18 10:52 Hemoglobin A1c 6.0 % (-5.6) H 06/04/18 05:46 Magnesium 1.5 mg/dL (1.6-2.6) L 06/08/18 05:49 - Head Head exam: Present: atraumatic, normal inspection, normocephalic - Eye Eye exam: Present: PERRL Pupils: Present: PERRL - Neck Neck exam: Present: full ROM - Respiratory Respiratory exam: Present: CTAB - Cardiovascular Cardiovascular exam: Present: RRR, +S1, +S2 - GI/Abdominal GI/Abdominal exam: Present: normal bowel sounds, soft, tenderness - Extremities Exam Extremities exam: Present: full ROM - Expanded Lower Extremity Exam Hip exam: Present: full ROM Upper Leg exam: Present: full ROM Knee exam: Present: full ROM Lower leg exam: Present: full ROM - Neurological Exam Neurological exam: Present: alert, oriented X3 - Psychiatric Psychiatric exam: Present: normal affect - Skin Skin exam: Present: pallor, warm Palliative Quality Palliative Quality: Screen for Code Status: Yes, Screen for Goals of Care: Yes, Screen for Pain: Yes, If Pain Regimen Started, Initiate Bowel Regimen: Yes, Screen for Nausea/Vomitting: Yes Code Status: 06/04/18 01:59 Resuscitation Status: Active [RES] Routine Comment: Resuscitation Status: Full Code - Labs CBC & Chem 7: 06/07/18 03:55 06/07/18 03:55 Labs: Laboratory Results - last 24 hr 06/07/18 06/07/18 06/07/18 12:01 17:19 20:32 POC Glucose 113 H 141 H 154 H Magnesium 06/08/18 06/08/18 06/08/18 05:49 07:38 10:52 POC Glucose 140 H 164 H Magnesium 1.5 L Consult Discharge Plan - Plan Referrals: Lois Yun MEDICAL TERMINOLOGIST [Primary Care Provider] -
--- NOTE | 2018-06-08 12:45 | Discharge Summary ---
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 transplanted heart: [place] heart Associated angina: without angina Qualified Code(s): I25.10 - Atherosclerotic heart disease of [place] coronary artery without angina pectoris (3) Diabetes Priority: Secondary Status: Chronic Qualifiers: Diabetes mellitus type: type 2 Diabetes mellitus snf insulin use: with vermin exterminator use Diabetes mellitus complication status: with unspecified complications Qualified Code(s): E11.8 - Type 2 diabetes mellitus with unspecified complications; Z79.4 - long term care social worker (current) use of insulin (4) Hypertension Priority: Secondary Status: Chronic Qualifiers: Hypertension type: essential hypertension Qualified Code(s): I10 - Essential (primary) hypertension (5) Hyperlipidemia Priority: Secondary Status: Chronic Qualifiers: Hyperlipidemia type: unspecified Qualified Code(s): E78.5 - Hyperlipidemia , unspecified (6) Colon cancer Priority: Primary Status: Chronic Qualifiers: Colon location: unspecified part of colon Qualified Code(s): C18.9 - Malignant neoplasm of colon, unspecified (7) Tobacco abuse Priority: Secondary Status: Chronic (8) Anxiety and depression Priority: Secondary Status: Chronic (9) Hypomagnesemia Priority: Secondary Status: Chronic Hospital course: Mr. Jansen is a 58 year old male with history of colon cancer and peritoneal carcinomatosis, who was admitted with worsening abdominal pain, nausea and vomiting. CT abdomen/pelvis done in the emergency room showed possible developing small bowel obstruction, worsening soft tissue swelling in the anterior abdominal wall with invasion of the left rectus abdominis muscle, concerning for metastatic disease. Surgery was consulted, patient is a poor surgical candidate, was managed with conservative medical management with nasogastric tube to intermittent low wall suction, bowel rest, IV hydration, pain control with when necessary antiemetics. He improved on this regimen, currently tolerating soft diet. Oncology was consulted, patient will be evaluated for second line chemotherapy as he is noted to have spread of his cancer radiographically. Patient was seen by palliative care, decided to be full code at this time, wishes to be discharged home, he resides with his sister, has no physical therapy needs. Patient is otherwise medically stable for discharge with outpatient oncology follow-up. He was noted to have low normal blood sugars during this admission, did not require basal insulin, Lantus is being discontinued. Discharge discussed with: patient, nurse - Time Spent with Patient Total time spent providing and/or coordinating discharge services: Greater than 30 minutes (45 min) - Discharge Medications Prescriptions: FentaNYL PATCH [Duragesic] 50 mcg TD Q72H 30 Days #10 patch.td72 Magnesium Oxide [Mag-Ox] 400 mg PO TID #90 tablet Home Medications: Aspirin Enteric Coated [Aspirin EC] 81 mg PO DAILY 05/29/16 [History] Ergocalciferol (VITAMIN D2) [Vitamin D2 (50,000 UNIT)] 10,000 unit PO SUWE 05/29 [History] Metformin HCl [Glucophage] 1,000 mg PO BID 05/29/16 [History] Metoprolol [Lopressor] 50 mg PO BID 05/29/16 [History] Nitroglycerin 0.4 mg SL Q5MIN PRN 05/29/16 [History] Rosuvastatin [Crestor] 40 mg PO DAILY 05/29/16 [History] Ticagrelor [Brilinta] 90 mg PO BID #60 tablet 05/30/16 [Rx] Diphenoxylate/Atropine [Lomotil 2.5 mg/0.025 mg] 1 each PO QID PRN #30 tablet [Rx] Loperamide [Imodium] 2 mg PO Q4HR PRN #30 capsule 10/24/17 [Rx] Ondansetron [Zofran] 8 mg PO Q8HR #90 tablet 10/24/17 [Rx] Prochlorperazine Maleate [Compazine] 10 mg PO Q8HR PRN #90 tablet 10/24/17 [Rx] Empagliflozin/Linagliptin [Glyxambi 10 mg-5 mg Tablet] 1 tab PO DAILY 11/02/17 [ History] Glimepiride [Amaryl] 4 mg PO DAILY 11/02/17 [History] Iron Polysaccharide Complex [Pro Fe] 180 mg PO DAILY 11/02/17 [History] Omeprazole [PriLOSEC] 40 mg PO DAILY 11/02/17 [History] amLODIPine [Norvasc] 10 mg PO DAILY 11/02/17 [History] Promethazine [Phenergan] 25 mg PO Q6HR #90 tablet 11/20/17 [Rx] Clindamycin Phosphate [Cleocin T] 30 gm TP DAILY #1 gel..gram. 12/11/17 [Rx] Docusate [Colace] 100 mg PO HS PRN #30 capsule 12/11/17 [Rx] Hydrocortisone 1% CREAM [Cortaid] 14 gm TP DAILY #1 bottle 12/11/17 [Rx] Capecitabine [Xeloda] 1,000 mg PO BID #56 tablet 12/26/17 [Rx] Clindamycin Phosphate [Clindagel] 75 ml TP DAILY #30 gel..ml. 01/01/18 [Rx] Doxycycline 100 mg PO BID #60 capsule 01/01/18 [Rx] Hydrocortisone 1% OINT [Cortaid] 1 appl TP BID #1 tube 01/01/18 [Rx] OxyCODONE Immed Rel [Roxicodone 5 MG] 10 mg PO BID PRN 30 Days #120 tablet 06/01 [Rx] Fenofibrate [Tricor] 54 mg PO DAILY 06/04/18 [History] Zolpidem [Ambien] 5 mg PO HS PRN 06/04/18 [History] Acetaminophen [Tylenol] 650 mg PO Q6HR PRN tablet 06/08/18 [Rx] FentaNYL PATCH [Duragesic] 50 mcg TD Q72H 30 Days #10 patch.td72 06/08/18 [Rx] Magnesium Oxide [Mag-Ox] 400 mg PO TID #90 tablet 06/08/18 [Rx] Allergies/Adverse Reactions: 3 Allergy/AdvReac Type Severity Reaction Status Date / Time bee venom protein (honey bee) Allergy Difficulty Verified 05/08/18 07:58 Breathing Penicillins [PCN] AdvReac Hives Verified 05/08/18 07:58 Date of admission: 06/04/18 15:49 Primary care physician: Lois Yun, Consults: 06/04/18 02:02 Consult to Surgery [CONS] Routine Consulting Provider: [facility] Reason for Consult: High grade SBO secondary to colonic mass. CT from [facility] Call Completed: Yes 06/04/18 13:22 Consult to Oncology [CONS] Routine Consulting Provider: Oncology [facility] Reason for Consult: colon cancer with new abdominal wall mets, partial SBO Call Completed: Yes 06/04/18 17:12 Consult to Palliative Care [CONS] Routine Comment: Consulting Provider: Palliative Care [place] Reason for Consult: Colon cancer with partial SBO and new abdominal wall mets , poor surgical candidate; Call Completed: No 06/05/18 15:20 Consult to Invasive Line Access Team [CONS] Routine Reason for Consult: limited vascular access Line Type: EPIV Discharging clinician: Mia Oliva Anticipated date of discharge: 06/08/18 - Constitutional Vitals: Temp Pulse Resp BP Pulse Ox 98.2 F 94 16 126/89 96 06/08/18 10:50 06/08/18 10:50 06/08/18 10:50 06/08/18 10:50 06/08/18 10:50 General appearance: Present: A&O X 3, answers questions appropriately Exam: . - Cardiovascular Cardiovascular exam: Present: RRR, +S1, +S2. Absent: diastolic murmur, gallop, rubs, systolic murmur - GI/Abdominal GI/Abdominal exam: Present: normal bowel sounds, soft (minimal lower abdominal and periumbilical tenderness, no guarding/rigidity), no peritoneal signs. Absent: distended, tenderness - Patient Status Disposition: Home, Self-Care Condition: Good Functional capacity at discharge: independent ambulation Overall status at discharge: patient is progressing back to baseline - Discharge Instructions Follow Up With: Lois Yun CNP [Primary Care Provider] - Additional Instructions: F/up with PCP in 1-2 weeks F/up with Oncology as scheduled - Diet and Activity Activity: resume usual activities as tolerated Diet: diabetic diet, low fat, low cholesterol, low salt diet
== END 2018-06-08 16:01 | disposition home or self-care (01) | DRG 240 ==
LOC: 3ANU → SUATTDRO 22:16
PROVIDERS: ADMIT Family Medicine; ATTEND Internal Medicine